=== PATIENT | male | born 1980 | race Hispanic/Latino ===

== ENCOUNTER 2018-06-12 02:52 | Inpatient (IN) | payer OTHER ==
[~2018-06-12] VITALS: Ht 172.7 cm; Wt 109.8 kg
[2018-06-12] MEDS ORDERED: ASPIRIN 325 MG TABLET ONE (03:13)
[2018-06-12] MEDS ORDERED: NITROGLYCERIN 1GM/1 INCH PACKET TD ONE ×2 (03:14→04:50)
[2018-06-12 03:18] LABS: BASOPHILS % (AUTO) 1.3 % (0.0-5.0); EOSINOPHILS % (AUTO) 4.2 % (0.0-8.0); HEMATOCRIT 33.4 % (42-54); LYMPHOCYTES % (AUTO) 19.4 % (21.0-51.0); MEAN CORPUSCULAR HEMOGLOBIN 28.1 pg (27.0-33.0); MEAN CORPUSCULAR HGB CONC 33.2 g/dL (32.0-36.0); MEAN CORPUSCULAR VOLUME 84.7 fL (79-99); MONOCYTES % (AUTO) 6.8 % (3.0-13.0); NEUTROPHILS % (AUTO) 68.3 % (40.0-77.0); PLATELET COUNT (AUTO) 380 K/uL (130-400); RED BLOOD CELL COUNT(AUTO) 3.95 MIL/uL (4.50-6.20); RED CELL DISTRIBUTION WIDTH 13.9 % (11.0-15.5)
[2018-06-12 03:23] LABS: CREATININE 7.2 mg/dL (0.5-1.5); POTASSIUM 5.1 mmol/L (3.5-5.1)
[2018-06-12 03:25] LABS: INR 0.91 (0.85-1.15); PROTHROMBIN TIME 9.6 SEC (9.6-11.6)
[2018-06-12] MEDS ORDERED: LABETALOL HCL 5 MG/ML 20ML VIAL IV ONE (03:28)
[2018-06-12 03:35] LABS: ALBUMIN 3.2 g/dL (3.5-5.0); BILIRUBIN,TOTAL 0.3 mg/dL (0.2-1.0); TOTAL PROTEIN, SERUM 7.2 g/dL (6.0-8.3)
[2018-06-12] MEDS ORDERED: HYDRALAZINE HCL 20 MG/ML VIAL ONE (04:50)
[2018-06-12] MEDS ORDERED: FUROSEMIDE 10 MG/ML 2ML VIAL ONE (05:29)
[2018-06-12] MEDS ORDERED: SODIUM CHLORIDE 0.9% 10 ML VIAL IVP PRN (05:45)
[2018-06-12] MEDS ORDERED: CLONIDINE HCL 0.1 MG TABLET PO PRN (05:45)
[2018-06-12 06:31] VITALS: BP 198/91
[2018-06-12] MEDS ORDERED: DEXTROSE 50%-WATER 50 ML DISP.SYRIN IV PRN (06:45)
[2018-06-12] MEDS ORDERED: GLUCAGON 1MG KIT 1 MG ML IM PRN (06:45)
[2018-06-12] MEDS: ALBUTEROL SULFATE 0.083% 2.5 MG/3 ML INH IH SCH ×3 (07:21→19:20)
[2018-06-12] MEDS: INSULIN R PO SS1 SQ SCH ×4 (07:30→21:00)
[2018-06-12 07:59] VITALS: BP 181/99
[2018-06-12] MEDS: FUROSEMIDE 20 MG TABLET PO SCH ×2 (08:30→21:15)
[2018-06-12] MEDS ORDERED: METOPROLOL TARTRATE 25 MG TAB PO SCH (09:00)
[2018-06-12 11:37] VITALS: BP 146/99
[2018-06-12 12:07] LABS: EOSINOPHILS % (AUTO) 3.3 % (0.0-8.0); HEMATOCRIT 29.7 % (42-54); LYMPHOCYTES % (AUTO) 24.5 % (21.0-51.0); MEAN CORPUSCULAR HEMOGLOBIN 27.6 pg (27.0-33.0); MEAN CORPUSCULAR HGB CONC 32.9 g/dL (32.0-36.0); MEAN CORPUSCULAR VOLUME 83.9 fL (79-99); MONOCYTES % (AUTO) 8.2 % (3.0-13.0); PLATELET COUNT (AUTO) 321 K/uL (130-400); RED BLOOD CELL COUNT(AUTO) 3.54 MIL/uL (4.50-6.20); RED CELL DISTRIBUTION WIDTH 13.7 % (11.0-15.5); WHITE BLOOD COUNT (AUTO) 14.9 K/uL (4.8-10.8)
[2018-06-12 12:21] LABS: ALBUMIN 2.7 g/dL (3.5-5.0); BILIRUBIN,TOTAL 0.4 mg/dL (0.2-1.0); CREATININE 7.3 mg/dL (0.5-1.5); POTASSIUM 4.5 mmol/L (3.5-5.1); TOTAL PROTEIN, SERUM 6.7 g/dL (6.0-8.3)
[2018-06-12 12:27] LABS: B-TYPE NATRIURETIC PEPTIDE 294 pg/mL (0-100)
[2018-06-12 12:47] LABS: HEMOGLOBIN A1C 8.1 % (4.0-6.0)
[2018-06-12] MEDS: METOPROLOL TARTRATE 25 MG TAB PO SCH ×2 (14:36→21:15)
[2018-06-12] MEDS: NITROGLYCERIN 1GM/1 INCH PACKET TD SCH ×2 (14:38→21:16)
[2018-06-12 16:08] VITALS: BP 160/93
[2018-06-12 19:49] VITALS: BP 121/79
[2018-06-13 00:10] VITALS: BP 169/94
[2018-06-13 00:48] LABS: APPEARANCE,URINE Clear (CLEAR); BILIRUBIN,URINE Negative (NEGATIVE); COLOR,URINE Yellow (YELLOW); GLUCOSE, URINE (UA) 250 mg/dL (NEGATIVE); KETONES,URINE Negative (NEGATIVE); LEUKOCYTE ESTERASE ,URINE Negative (NEGATIVE); NITRATE,URINE Negative (NEGATIVE); OCCULT BLOOD,URINE Trace (NEGATIVE); PH,URINE 5.5 (5.0-8.0); PROTEIN,URINE 300 (NEGATIVE); UROBILINOGEN,URINE 0.2 mg/dL (0.2-1.0)
[2018-06-13] MEDS: ALBUTEROL SULFATE 0.083% 2.5 MG/3 ML INH IH SCH ×4 (01:00→18:10)
[2018-06-13 01:03] LABS: RBC,URINE None Seen /HPF (0-1); WBC,URINE None Seen /HPF (0-1)
[2018-06-13 01:04] LABS: BACTERIA,URINE None Seen /HPF (None Seen); SQUAMOUS EPITHELIAL CELL,UR Rare /HPF (0-2)
[2018-06-13 03:59] LABS: BASOPHILS % (AUTO) 1.4 % (0.0-5.0); EOSINOPHILS % (AUTO) 2.6 % (0.0-8.0); HEMATOCRIT 27.8 % (42-54); MEAN CORPUSCULAR HGB CONC 33.1 g/dL (32.0-36.0); MEAN CORPUSCULAR VOLUME 84.6 fL (79-99); MONOCYTES % (AUTO) 8.8 % (3.0-13.0); NEUTROPHILS % (AUTO) 63.2 % (40.0-77.0); PLATELET COUNT (AUTO) 321 K/uL (130-400); RED BLOOD CELL COUNT(AUTO) 3.28 MIL/uL (4.50-6.20); RED CELL DISTRIBUTION WIDTH 13.7 % (11.0-15.5); WHITE BLOOD COUNT (AUTO) 12.8 K/uL (4.8-10.8)
[2018-06-13 04:14] LABS: B-TYPE NATRIURETIC PEPTIDE 247 pg/mL (0-100)
[2018-06-13 04:15] LABS: ALBUMIN 2.6 g/dL (3.5-5.0); BILIRUBIN,TOTAL 0.3 mg/dL (0.2-1.0); CREATININE 7.5 mg/dL (0.5-1.5); TOTAL PROTEIN, SERUM 6.5 g/dL (6.0-8.3)
[2018-06-13 04:32] VITALS: BP 147/97
[2018-06-13] MEDS: NITROGLYCERIN 1GM/1 INCH PACKET TD SCH ×3 (05:43→23:04)
[2018-06-13] MEDS: INSULIN R PO SS1 SQ SCH ×4 (06:03→23:01)
[2018-06-13 08:23] VITALS: BP 160/90
[2018-06-13] MEDS: FOLIC ACID/VITAMIN B COMP W-C 1 MG CAPSULE PO SCH (09:00)
[2018-06-13] MEDS: ASPIRIN 81 MG EC TAB PO SCH (09:00)
[2018-06-13] MEDS: FUROSEMIDE 20 MG TABLET PO SCH ×2 (09:00→23:04)
[2018-06-13] MEDS: METOPROLOL TARTRATE 50 MG TAB PO SCH ×2 (09:01→23:04)
[2018-06-13 11:51] VITALS: BP 155/97
[2018-06-13] MEDS: AMLODIPINE BESYLATE 5 MG TAB PO SCH (15:34)
[2018-06-13 16:43] VITALS: BP 144/87
[2018-06-13 19:32] VITALS: BP 145/89
[2018-06-13] MEDS: ATORVASTATIN CALCIUM 10 MG TABLET PO SCH (23:04)
[2018-06-14] MEDS: ALBUTEROL SULFATE 0.083% 2.5 MG/3 ML INH IH SCH ×5 (00:52→23:49)
[2018-06-14 01:52] VITALS: BP 146/94
[2018-06-14 03:43] VITALS: BP 143/93
[2018-06-14 04:03] LABS: HEMATOCRIT 30.1 % (42-54); MEAN CORPUSCULAR HEMOGLOBIN 27.6 pg (27.0-33.0); MEAN CORPUSCULAR HGB CONC 32.4 g/dL (32.0-36.0); MEAN CORPUSCULAR VOLUME 85.1 fL (79-99); PLATELET COUNT (AUTO) 293 K/uL (130-400); RED BLOOD CELL COUNT(AUTO) 3.54 MIL/uL (4.50-6.20); RED CELL DISTRIBUTION WIDTH 13.7 % (11.0-15.5); WHITE BLOOD COUNT (AUTO) 11.9 K/uL (4.8-10.8)
[2018-06-14 04:25] LABS: CREATININE 7.7 mg/dL (0.5-1.5); POTASSIUM 5.1 mmol/L (3.5-5.1)
[2018-06-14] MEDS: INSULIN R PO SS1 SQ SCH ×4 (05:49→21:00)
[2018-06-14] MEDS: NITROGLYCERIN 1GM/1 INCH PACKET TD SCH ×3 (06:50→22:53)
[2018-06-14 07:29] VITALS: BP 147/92
[2018-06-14] MEDS ORDERED: AMLODIPINE BESYLATE 5 MG TAB PO SCH (09:00)
[2018-06-14] MEDS: FOLIC ACID/VITAMIN B COMP W-C 1 MG CAPSULE PO SCH (10:10)
[2018-06-14] MEDS: FUROSEMIDE 20 MG TABLET PO SCH ×2 (10:10→22:46)
[2018-06-14] MEDS: ASPIRIN 81 MG EC TAB PO SCH (10:10)
[2018-06-14] MEDS: METOPROLOL TARTRATE 50 MG TAB PO SCH ×2 (10:10→22:45)
[2018-06-14] MEDS: AMLODIPINE BESYLATE 5 MG TAB PO SCH (10:11)
[2018-06-14] MEDS ORDERED: ATOR10 PO (10:47)
[2018-06-14] MEDS ORDERED: AMLO5TAB4 PO (10:47)
[2018-06-14] MEDS ORDERED: AEC81 PO (10:47)
[2018-06-14] MEDS ORDERED: METO100T14 PO (10:47)
[2018-06-14 12:04] VITALS: BP 150/96
[2018-06-14 16:31] VITALS: BP 144/95
[2018-06-14 19:46] VITALS: BP 118/56
[2018-06-14] MEDS: ATORVASTATIN CALCIUM 10 MG TABLET PO SCH (22:46)
[2018-06-15 00:16] VITALS: BP 147/81
[2018-06-15 03:51] VITALS: BP 142/96
[2018-06-15] MEDS: NITROGLYCERIN 1GM/1 INCH PACKET TD SCH (05:46)
[2018-06-15] MEDS: INSULIN R PO SS1 SQ SCH ×2 (05:46→11:30)
[2018-06-15] MEDS: ALBUTEROL SULFATE 0.083% 2.5 MG/3 ML INH IH SCH ×2 (06:15→11:03)
[2018-06-15 07:11] LABS: HEPATITIS A ANTIBODY IGM Negative (Negative); HEPATITIS B CORE IGM Negative (Negative); HEPATITIS Bs ANTIGEN SCREEN P Negative (Negative)
[2018-06-15 07:15] VITALS: BP 154/92
[2018-06-15] MEDS: METOPROLOL TARTRATE 50 MG TAB PO SCH (10:53)
[2018-06-15] MEDS: AMLODIPINE BESYLATE 5 MG TAB PO SCH (10:53)
[2018-06-15] MEDS: FOLIC ACID/VITAMIN B COMP W-C 1 MG CAPSULE PO SCH (10:53)
[2018-06-15] MEDS: ASPIRIN 81 MG EC TAB PO SCH (10:54)
[2018-06-15] MEDS: FUROSEMIDE 20 MG TABLET PO SCH (10:54)
[2018-06-15 11:29] VITALS: BP 162/92
[2018-06-15] MEDS ORDERED: LABETALOL HCL 200 MG TABLET PO SCH (21:00)
== END 2018-06-15 14:45 | disposition home or self-care (01) | DRG 292 ==
LOC: EDH 02:52 → EDHIP 02:53 → 2AH 06:18
PROVIDERS: ADMIT Hospitalist; ATTEND Hospitalist
DX: I13.2 Hypertensive heart and chronic kidney disease with heart failure and with stage 5 chronic kidney disease, or end stage renal disease (principal); J81.1 Chronic pulmonary edema; I16.1 Hypertensive emergency; N17.9 Acute kidney failure, unspecified; I50.30 Unspecified diastolic (congestive) heart failure; N18.5 Chronic kidney disease, stage 5; I16.0 Hypertensive urgency; D72.829 Elevated white blood cell count, unspecified; E11.21 Type 2 diabetes mellitus with diabetic nephropathy; E11.65 Type 2 diabetes mellitus with hyperglycemia; E66.01 Morbid (severe) obesity due to excess calories; G47.10 Hypersomnia, unspecified; G47.30 Sleep apnea, unspecified; E11.51 Type 2 diabetes mellitus with diabetic peripheral angiopathy without gangrene; E11.22 Type 2 diabetes mellitus with diabetic chronic kidney disease; D63.1 Anemia in chronic kidney disease; Z68.36 Body mass index [BMI] 36.0-36.9, adult; Z91.19 Patient's noncompliance with other medical treatment and regimen
CPT/HCPCS: 36415; 71045; 76770; 80048; 80053; 80061; 80074; 81001; 82550; 82570; 82948; 83036; 83540; 83550; 83874; 83880; 83935; 84156; 84166; 84300; 84484; 84550; 85025; 85027; 85378; 85610; 85730; 86038; 86160; 86215; 86235; 86255; 86325; 86334; 93005; 93306; 93975; 94640; 94664; J0360; J1815; J1940; J3490

== ENCOUNTER 2019-04-05 22:30 | Inpatient (IN) | payer OTHER ==
[~2019-04-05] VITALS: Ht 172.7 cm; Wt 110.5 kg
[~2019-04-05 22:30] MED LIST: AEC81 PO; AMLO5TAB4 PO; ATOR10 PO; METO100T14 PO
[2019-04-05 23:37] LABS: BASOPHILS % (AUTO) 1.3 % (0.0-5.0); EOSINOPHILS % (AUTO) 5.7 % (0.0-8.0); HEMATOCRIT 21.1 % (42-54); LYMPHOCYTES % (AUTO) 13.1 % (21.0-51.0); MEAN CORPUSCULAR HGB CONC 32.1 g/dL (32.0-36.0); MEAN CORPUSCULAR VOLUME 87.1 fL (79-99); MONOCYTES % (AUTO) 10.1 % (3.0-13.0); NEUTROPHILS % (AUTO) 69.8 % (40.0-77.0); NUCLEATED RED BLOOD CELLS 0.1 % (0.0-0.19); PLATELET COUNT (AUTO) 193 K/uL (130-400); RED BLOOD CELL COUNT(AUTO) 2.42 MIL/uL (4.50-6.20); RED CELL DISTRIBUTION WIDTH 14.9 % (11.0-15.5); WHITE BLOOD COUNT (AUTO) 11.9 K/uL (4.8-10.8)
[2019-04-05 23:52] LABS: ALBUMIN 2.9 g/dL (3.5-5.0); BILIRUBIN,TOTAL 0.3 mg/dL (0.2-1.0); TOTAL PROTEIN, SERUM 7.2 g/dL (6.0-8.3)
[2019-04-05 23:58] LABS: INR 1.05 (0.85-1.15); PARTIAL THROMBOPLASTIN TIME 32.2 SEC (26.3-35.5)
[2019-04-05 23:59] LABS: CREATININE 19.8 mg/dL (0.5-1.5); POTASSIUM 6.4 mmol/L (3.5-5.1)
[2019-04-06] VITALS (15 sets, daily range): BP systolic 120–172; BP diastolic 58–96
[2019-04-06] MEDS ORDERED: SODIUM POLYSTYRENE SULFONATE 15 GM/60 ML ML ONE (00:30)
[2019-04-06] MEDS ORDERED: FUROSEMIDE 10 MG/ML 4ML VIAL ONE (00:30)
[2019-04-06] MEDS ORDERED: DEXTROSE 50%-WATER 50 ML DISP.SYRIN IV ONE (00:31)
[2019-04-06] MEDS ORDERED: INSULIN HUMULIN R 100 UNIT/ML 3ML ONE (00:31)
[2019-04-06] MEDS ORDERED: SODIUM BICARB 50MEQ 50ML VIAL ONE ×2 (00:32→12:08)
[2019-04-06] MEDS ORDERED: CALCIUM GLUCONATE 1 GM/10 ML VIAL IV ONE (00:33)
[2019-04-06 02:27] LABS: ALBUMIN 2.8 g/dL (3.5-5.0); BILIRUBIN,TOTAL 0.4 mg/dL (0.2-1.0); POTASSIUM 5.8 mmol/L (3.5-5.1)
[2019-04-06 02:41] LABS: CREATININE 19.8 mg/dL (0.5-1.5)
[2019-04-06] MEDS ORDERED: GLUCAGON 1MG KIT 1 MG ML IM PRN (04:45)
[2019-04-06] MEDS ORDERED: DEXTROSE 50%-WATER 50 ML DISP.SYRIN IV PRN (04:45)
[2019-04-06] MEDS ORDERED: AMLO10TA7 PO (06:33)
--- NOTE | 2019-04-06 07:20 | NUR ---
PT UPDATE PT RECEIVED WITH H&H OF 6.8/21.1, BUN AND CREATININE OF 155 AND 19.8 WITH A GFR OF 3. MD OLMEDO.
--- NOTE | 2019-04-06 07:29 | NUR ---
PT UPDATE DR FAUZIA MARIANO CALLED BACK AND MADE AWARE OF PT LAB RESULTS, TO MAKE ROUNDS AND TALK TO PT
[2019-04-06] MEDS: INSULIN HUMULIN R 100 UNIT/ML 3ML SQ SCH ×4 (07:30→21:00)
[2019-04-06] MEDS ORDERED: EPOETIN ALFA 10,000 UNIT/ML VIAL SQ SCH (09:30)
[2019-04-06] MEDS ORDERED: LIDOCAINE HCL 1% 20 ML VIAL ONE (12:09)
[2019-04-06 13:58] LABS: HEMOGLOBIN A1C 5.1 % (4.0-6.0)
[2019-04-06 14:02] LABS: ALBUMIN 2.9 g/dL (3.5-5.0)
[2019-04-06 14:19] LABS: HEMATOCRIT 21.2 % (42-54)
[2019-04-06 14:21] LABS: CREATININE 20.2 mg/dL (0.5-1.5)
--- NOTE | 2019-04-06 15:02 | NUR ---
cm note met with patient and states resides at home alone. is independent with ambulation and adls. but has been weaker lately, states has family or friends that can assist him with transport etc. dc plan is back to home at or. discussed dialysis as per dr Vega recommendation, pt states is in agreement to go [place] [facility] [place], 1st choice, 2nd choice, [facility], 3rd choice, [facility], and or any facility that will accept. choice letter obtained. Addendum: 04/06/19 at 1512 by YUMIKO MORSE CM Amended: Links added.
--- NOTE | 2019-04-06 15:03 | NUR ---
PT S/P PERMCATH INSERTION PT REPEAT HEMOGLOBIN 6.6 S/P PERMCATH PLACEMENT, MD AWARE, PT PENDING 1 UNIT OF PRBC WITH DIALYSIS.
[2019-04-06] MEDS ORDERED: SODIUM CHLORIDE 0.9% 1000ML 1,000 ML IV PRN (18:45)
[2019-04-06] MEDS ORDERED: HEPARIN SODIUM 5000UNIT/ML 1ML VIAL IJ PRN (18:45)
[2019-04-06] MEDS ORDERED: ACETAMINOPHEN 325 MG TAB PO PRN (18:45)
[2019-04-06] MEDS ORDERED: 0.9% SODIUM CHLORIDE 1000 ML IV BAG IV PRN (18:45)
--- NOTE | 2019-04-06 19:40 | NUR ---
[facility] CONSULT DR. AURORA OLMEDO, STATED HE WILL SEE PT TOMORROW, NOTIFIED [place] [facility] [place]
--- NOTE | 2019-04-06 22:50 | NUR ---
MD CONSULT DR. SMITH HERE TO SEE PATIENT (COVERING FOR DR. SIMON) SPOKE WITH PATIENT REGARDING AV GRAFT. ORDERS RECEIVED FOR VEIN MAPPING AND SAID HE WILL RETURN TOMORROW.
[2019-04-07 03:30] VITALS: BP 170/86
[2019-04-07 04:49] LABS: MEAN CORPUSCULAR HEMOGLOBIN 28.8 pg (27.0-33.0); MEAN CORPUSCULAR HGB CONC 33.2 g/dL (32.0-36.0); MEAN CORPUSCULAR VOLUME 86.8 fL (79-99); NUCLEATED RED BLOOD CELLS 0.1 % (0.0-0.19); PLATELET COUNT (AUTO) 147 K/uL (130-400); RED BLOOD CELL COUNT(AUTO) 2.33 MIL/uL (4.50-6.20); RED CELL DISTRIBUTION WIDTH 14.9 % (11.0-15.5); WHITE BLOOD COUNT (AUTO) 9.2 K/uL (4.8-10.8)
[2019-04-07 05:13] LABS: PHOSPHORUS 9.6 mg/dL (2.5-4.9); POTASSIUM 4.6 mmol/L (3.5-5.1)
[2019-04-07 05:17] LABS: HEMATOCRIT 20.2 % (42-54)
[2019-04-07 05:18] LABS: CREATININE 15.9 mg/dL (0.5-1.5)
[2019-04-07 05:19] LABS: % IRON SATURATION 52.1 % (30-44)
[2019-04-07 05:39] LABS: BASOPHILS % (MANUAL) 2 % (0-2); EOSINOPHILS % (MANUAL) 1 % (1-6); LYMPHOCYTES % (MANUAL) 11 % (22-44); MAN.DIFF COMMENT-IMPRESSION MANUAL DIFFERENTIAL; MONOCYTES % (MANUAL) 1 % (2-9); PLATELET MORPHOLOGY COMMENT ADEQUATE; SEGMENTED NEUTROPHILS % 85 % (40-70)
--- NOTE | 2019-04-07 06:24 | NUR ---
NOTE PAGED DR. Simone ATKINSON TO NOTIFY OF CRITICAL H&H RESULTS THIS AM.
[2019-04-07] MEDS: INSULIN HUMULIN R 100 UNIT/ML 3ML SQ SCH ×4 (06:38→21:00)
--- NOTE | 2019-04-07 06:47 | NUR ---
NOTE DR. ATKINSON RETURNED CALL. INFORMED OF H&H RESULT. RECEIVED ORDERS TO TRANSFUSE 1 UNIT OF PRBC'S TODAY WITH HEMODIALYSIS. INFORMED PATIENT OF NEW ORDERS.
[2019-04-07 07:59] VITALS: BP 157/83
[2019-04-07 08:12] LABS: HEPATITIS Bs ANTIGEN SCREEN P Negative (Negative)
[2019-04-07 12:00] VITALS: BP 155/96
[2019-04-07] MEDS: EPOETIN ALFA 10,000 UNIT/ML VIAL SQ SCH ×2 (15:00→19:26)
[2019-04-07 16:00] VITALS: BP 152/90
[2019-04-07 19:39] VITALS: BP 180/85
[2019-04-07 23:34] VITALS: BP 171/98
[2019-04-08 03:47] VITALS: BP 185/101
[2019-04-08 05:05] LABS: HEMATOCRIT 24.7 % (42-54); MEAN CORPUSCULAR HEMOGLOBIN 28.9 pg (27.0-33.0); MEAN CORPUSCULAR HGB CONC 33.9 g/dL (32.0-36.0); MEAN CORPUSCULAR VOLUME 85.2 fL (79-99); PLATELET COUNT (AUTO) 151 K/uL (130-400); RED CELL DISTRIBUTION WIDTH 14.4 % (11.0-15.5); WHITE BLOOD COUNT (AUTO) 10.1 K/uL (4.8-10.8)
[2019-04-08 05:24] LABS: PHOSPHORUS 6.9 mg/dL (2.5-4.9); POTASSIUM 3.6 mmol/L (3.5-5.1)
[2019-04-08 05:31] LABS: CREATININE 11.5 mg/dL (0.5-1.5)
[2019-04-08] MEDS: INSULIN HUMULIN R 100 UNIT/ML 3ML SQ SCH ×4 (05:58→21:00)
[2019-04-08 07:40] VITALS: BP 170/91
[2019-04-08] MEDS ORDERED: ONDANSETRON HCL 4 MG/2 ML VIAL IVP PRN (10:30)
[2019-04-08 11:02] VITALS: BP 180/106
--- NOTE | 2019-04-08 11:03 | NUR ---
ELEVATED BP BLOOD PRESSURE READING REPORTED 180/106, HR 72. PAGED DR. ATKINSON TO REPORT BLOOD PRESSURE NO PRN MEDICATIONS ORDERED. ALSO WILL INFORM DR. ATKINSON PATIENTS BLOOD PRESSURE HOME MEDICATIONS PENDING TO BE RESUMED. Addendum: 04/08/19 at 1121 by SHEILA MAYFIELD RN RN DR. ATKINSON RETURNED MY PAGE, DID NOT GIVE ORDERS. STATED "I WILL BE THERE TO SEE PATIENT SOON."
[2019-04-08] MEDS ORDERED: SERTRALINE HCL 50 MG TABLET PO SCH (12:15)
[2019-04-08] MEDS ORDERED: FOLIC ACID/VITAMIN B COMP W-C 1 MG CAP/TAB PO SCH (12:15)
--- NOTE | 2019-04-08 14:30 | NUR ---
HD REFERRAL IN PROCESS- SENT TO [facility]; CALL BACK JAROD-- STATES IT WILL GO TO THEIR CORPORATE OFFICE FOR FINANCIAL APPROVAL Addendum: 04/08/19 at 1552 by OG SANDHU RN CM Amended: Links added.
[2019-04-08 16:04] VITALS: BP 171/91
[2019-04-08] MEDS ORDERED: AMLODIPINE BESYLATE 5 MG TAB PO ONE (16:15)
[2019-04-08] MEDS ORDERED: METOPROLOL TARTRATE 50 MG TAB ONE (16:15)
--- NOTE | 2019-04-08 17:15 | NUR ---
DR. LUIS OLMEDO MD TO FOLLOW-UP WITH CONSULT AND TO INQUIRE ABOUT POSSIBLE PLANS FOR PROCEDURE. NO ANSWER AT THIS TIME.
[2019-04-08] MEDS: EPOETIN ALFA 10,000 UNIT/ML VIAL SQ SCH (18:39)
[2019-04-08 19:27] VITALS: BP 150/84
[2019-04-08] MEDS: ATORVASTATIN CALCIUM 10 MG TABLET PO SCH (21:01)
[2019-04-08] MEDS: METOPROLOL TARTRATE 50 MG TAB PO SCH (21:01)
[2019-04-08 23:24] VITALS: BP 133/70
[2019-04-09 03:56] VITALS: BP 142/84
[2019-04-09 05:18] LABS: HEMATOCRIT 24.5 % (42-54); MEAN CORPUSCULAR HEMOGLOBIN 28.8 pg (27.0-33.0); MEAN CORPUSCULAR HGB CONC 33.5 g/dL (32.0-36.0); MEAN CORPUSCULAR VOLUME 85.8 fL (79-99); NUCLEATED RED BLOOD CELLS 0.1 % (0.0-0.19); PLATELET COUNT (AUTO) 139 K/uL (130-400); RED BLOOD CELL COUNT(AUTO) 2.85 MIL/uL (4.50-6.20); RED CELL DISTRIBUTION WIDTH 14.5 % (11.0-15.5); WHITE BLOOD COUNT (AUTO) 11.1 K/uL (4.8-10.8)
[2019-04-09 05:27] LABS: EOSINOPHILS % (MANUAL) 5 % (1-6); LYMPHOCYTES % (MANUAL) 10 % (22-44); MONOCYTES % (MANUAL) 19 % (2-9); SEGMENTED NEUTROPHILS % 66 % (40-70)
[2019-04-09 05:28] LABS: MAN.DIFF COMMENT-IMPRESSION MANUAL DIFFERENTIAL; PLATELET MORPHOLOGY COMMENT ADEQUATE
[2019-04-09 05:32] LABS: ALBUMIN 2.7 g/dL (3.5-5.0); BILIRUBIN,TOTAL 0.7 mg/dL (0.2-1.0); PHOSPHORUS 5.3 mg/dL (2.5-4.9); POTASSIUM 3.7 mmol/L (3.5-5.1)
[2019-04-09 05:52] LABS: CREATININE 8.9 mg/dL (0.5-1.5)
[2019-04-09] MEDS: INSULIN HUMULIN R 100 UNIT/ML 3ML SQ SCH ×4 (07:30→20:28)
[2019-04-09 08:00] VITALS: BP 131/79
--- NOTE | 2019-04-09 09:09 | NUR ---
DR. SMITH CALLED DR. SMITH ([phone]) TO FOLLOW-UP IN REGARDS TO PLANS FOR POSSIBLE PROCEDURE. SPOKE TO JUDY NELSON AND SHE TOLD ME THAT DR. SMITH STATES "I WILL BE THERE LATER THIS AFTERNOON TO SEE PATIENT."
[2019-04-09] MEDS: SERTRALINE HCL 50 MG TABLET PO SCH (09:21)
[2019-04-09] MEDS: FOLIC ACID/VITAMIN B COMP W-C 1 MG CAP/TAB PO SCH (09:21)
[2019-04-09] MEDS: AMLODIPINE BESYLATE 5 MG TAB PO SCH (09:22)
[2019-04-09] MEDS: METOPROLOL TARTRATE 50 MG TAB PO SCH ×2 (09:22→20:27)
[2019-04-09] MEDS: ASPIRIN 81 MG EC TAB PO SCH (09:22)
[2019-04-09 12:00] VITALS: BP 117/72
[2019-04-09] MEDS: EPOETIN ALFA 10,000 UNIT/ML VIAL SQ SCH (14:46)
--- NOTE | 2019-04-09 15:17 | NUR ---
REFERRAL TO [facility]- CHANGE OF CLINIC RECD ORDER FROM DR. ATKINSON TO CHANGE CLINCI TO [facility]- [place] [facility] [place] PATIENT DOES NOT HAVE WORKING QUARTERS, THIS IS A DISCREPANCY FROM [facility], CALLED [facility] AND LEFT MESSAGE REFERRAL FAXED TO [facility] CENTRAL INTAKE Addendum: 04/09/19 at 1520 by OG SANDHU RN CM Amended: Links added.
[2019-04-09 16:00] VITALS: BP 129/76
[2019-04-09 19:14] VITALS: BP 129/78
[2019-04-09] MEDS: ATORVASTATIN CALCIUM 10 MG TABLET PO SCH (20:27)
--- NOTE | 2019-04-09 23:20 | NUR ---
MD SHADE FARIAS VISITED WITH PATIENT. POC DISCUSSED. NO NEW ORDERS FOR FISTULA OR GRAFT PATIENT WILL BE HAVING DIALYSIS TOMORROW. PER NO ONE INFORMED HIM TODAY ABOUT PATIENT COMPLETING HIS 3 ROUNDS OF DIALYSIS. POSSIBLE PLANNING FOR SATURDAY. PATIENT AWARE. NO QUESTIONS OR CONCERNS VOICED AT THIS TIME. WILL CONTINUE TO BE OBSERVED. Addendum: 04/09/19 at 8123 by MAI PEREZ RN RN Amended: Links added.
[2019-04-09 23:48] VITALS: BP 143/81
[2019-04-10 03:36] VITALS: BP 139/85
[2019-04-10 04:14] LABS: HEMATOCRIT 25.9 % (42-54); MEAN CORPUSCULAR HEMOGLOBIN 28.6 pg (27.0-33.0); MEAN CORPUSCULAR HGB CONC 33.3 g/dL (32.0-36.0); PLATELET COUNT (AUTO) 160 K/uL (130-400); RED BLOOD CELL COUNT(AUTO) 3.01 MIL/uL (4.50-6.20); WHITE BLOOD COUNT (AUTO) 11.2 K/uL (4.8-10.8)
[2019-04-10 04:25] LABS: PHOSPHORUS 5.1 mg/dL (2.5-4.9); POTASSIUM 3.8 mmol/L (3.5-5.1)
[2019-04-10 04:28] LABS: BASOPHILS % (MANUAL) 1 % (0-2); EOSINOPHILS % (MANUAL) 5 % (1-6); LYMPHOCYTES % (MANUAL) 13 % (22-44); MAN.DIFF COMMENT-IMPRESSION MANUAL DIFFERENTIAL; MONOCYTES % (MANUAL) 4 % (2-9); SEGMENTED NEUTROPHILS % 77 % (40-70)
[2019-04-10 04:29] LABS: CREATININE 9.8 mg/dL (0.5-1.5); PLATELET MORPHOLOGY COMMENT ADEQUATE
[2019-04-10 04:45] LABS: BILIRUBIN,URINE Negative (NEGATIVE); COLOR,URINE Yellow (YELLOW); GLUCOSE, URINE (UA) TRACE mg/dL (NEGATIVE); KETONES,URINE Negative (NEGATIVE); LEUKOCYTE ESTERASE ,URINE Moderate (NEGATIVE); NITRATE,URINE Negative (NEGATIVE); OCCULT BLOOD,URINE Trace (NEGATIVE); PROTEIN,URINE 300 mg/dL (NEGATIVE)
[2019-04-10 04:51] LABS: APPEARANCE,URINE SLIGHTLY CLOUDY (CLEAR)
[2019-04-10 05:09] LABS: BACTERIA,URINE Few /HPF (None Seen); RBC,URINE 0-1 /HPF (0-1); SQUAMOUS EPITHELIAL CELL,UR 0-2 /HPF (0-2)
[2019-04-10 07:30] VITALS: BP 149/85
[2019-04-10] MEDS: INSULIN HUMULIN R 100 UNIT/ML 3ML SQ SCH ×4 (07:30→20:53)
[2019-04-10] MEDS: ASPIRIN 81 MG EC TAB PO SCH (09:21)
[2019-04-10] MEDS: AMLODIPINE BESYLATE 5 MG TAB PO SCH (09:22)
[2019-04-10] MEDS: FOLIC ACID/VITAMIN B COMP W-C 1 MG CAP/TAB PO SCH (09:22)
[2019-04-10] MEDS: METOPROLOL TARTRATE 50 MG TAB PO SCH ×2 (09:22→20:53)
[2019-04-10] MEDS: SERTRALINE HCL 50 MG TABLET PO SCH (09:22)
--- NOTE | 2019-04-10 10:30 | NUR ---
CALL JAROD SU TENTATIVE CHAIR TIME MWF 3RD SHIFT AT [facility] AT [facility] [employer] NOTE CLEARED YET . SPOKE AGAIN TO FATOU AT [facility], STATES YES PT HAS WORKING QUARTERS FOR MEDICARE. Addendum: 04/10/19 at 1305 by OG SANDHU RN Amended: Links added.
[2019-04-10 11:00] VITALS: BP 132/78
[2019-04-10] MEDS ORDERED: 0.9% SODIUM CHLORIDE 1000 ML IV BAG IV PRN (12:00)
[2019-04-10] MEDS ORDERED: HEPARIN SODIUM 5000UNIT/ML 1ML VIAL IJ PRN ×2 (12:00)
[2019-04-10] MEDS ORDERED: SODIUM CHLORIDE 0.9% 1000ML 1,000 ML IV PRN (12:00)
[2019-04-10] MEDS ORDERED: ACETAMINOPHEN 325 MG TAB PO PRN (12:00)
[2019-04-10] MEDS ORDERED: LIDOCAINE HCL-MPF 1% 2ML VIAL IJ PRN (12:00)
[2019-04-10] MEDS ORDERED: NITROGLYCERIN 0.4 MG SL TAB SL PRN (12:00)
[2019-04-10 16:00] VITALS: BP 134/75
[2019-04-10] MEDS: EPOETIN ALFA 10,000 UNIT/ML VIAL SQ SCH (16:36)
[2019-04-10 19:30] VITALS: BP 141/86
[2019-04-10] MEDS: ATORVASTATIN CALCIUM 10 MG TABLET PO SCH (20:52)
[2019-04-10 22:51] VITALS: BP 125/80
[2019-04-11] VITALS (25 sets, daily range): BP systolic 110–151; BP diastolic 64–84
[2019-04-11 04:46] LABS: HEMATOCRIT 25.1 % (42-54); MEAN CORPUSCULAR HEMOGLOBIN 28.7 pg (27.0-33.0); MEAN CORPUSCULAR VOLUME 87.1 fL (79-99); NUCLEATED RED BLOOD CELLS 0.2 % (0.0-0.19); PLATELET COUNT (AUTO) 141 K/uL (130-400); RED BLOOD CELL COUNT(AUTO) 2.88 MIL/uL (4.50-6.20); RED CELL DISTRIBUTION WIDTH 14.4 % (11.0-15.5); WHITE BLOOD COUNT (AUTO) 10.8 K/uL (4.8-10.8)
[2019-04-11 04:57] LABS: CREATININE 7.6 mg/dL (0.5-1.5); POTASSIUM 3.9 mmol/L (3.5-5.1)
[2019-04-11 05:02] LABS: INR 1.09 (0.85-1.15); PARTIAL THROMBOPLASTIN TIME 32.5 SEC (26.3-35.5); PROTHROMBIN TIME 11.4 SEC (9.6-11.6)
[2019-04-11] MEDS: INSULIN HUMULIN R 100 UNIT/ML 3ML SQ SCH ×4 (07:30→21:00)
[2019-04-11] MEDS ORDERED: LIDOCAINE HCL MPF 1% 5ML VIAL ONE (08:07)
[2019-04-11] MEDS ORDERED: SUCCINYLCHOLINE 200MG/10ML SYR ONE (08:07)
[2019-04-11] MEDS ORDERED: PROPOFOL 10 MG/ML 20ML VIAL IV ONE (08:08)
[2019-04-11] MEDS ORDERED: FENTANYL CITRATE PF 50 MCG/1 ML 2ML VIAL ONE (08:08)
[2019-04-11] MEDS ORDERED: BACITRACIN 50,000 UNIT VIAL ONE (08:25)
[2019-04-11] MEDS ORDERED: CEFAZOLIN SODIUM 1 GM VIAL ONE (08:50)
[2019-04-11] MEDS ORDERED: EPHEDRINE SULFATE 50 MG/ML AMPULE ONE (09:16)
[2019-04-11] MEDS ORDERED: LIDOCAINE HCL 1% 20 ML VIAL ONE (09:35)
[2019-04-11] MEDS ORDERED: BUPIVACAINE/PF 0.5% 30ML VIAL ONE (09:35)
[2019-04-11] MEDS ORDERED: HEPARIN SODIUM 1000UNIT/ML 10ML VIAL ONE (09:53)
[2019-04-11] MEDS ORDERED: PROTAMINE SULFATE 10 MG/ML 25ML VIAL IV ONE (10:26)
[2019-04-11] MEDS ORDERED: PROTAMINE SULFATE 10 MG/ML 5 ML VIAL ONE (10:26)
--- NOTE | 2019-04-11 11:00 | NUR ---
Nutrition Intervention: Nutrition screen based on LOS x 6 days. Pt. admitted with Dx of Renal Failure. Pt. not in room during RD visit- Out for procedure. Pt. NPO for HD access procedure. Labs reviewed(Alb 2.7, BUN 43, Creat 7.6, GFR 8). LBM: 04/09/19. SR-20, elastic. BMI: 38.8, Obesity Grade 2. Recommendations: 1) When diet resumed, rec. 75gm CCD Renal Dialysis diet with 30ml ProMod BID with meals. 2) Continue to monitor pt's nutritional status. 3) Consult RD as nutrition concerns arise. Addendum: 04/11/19 at [address] Amended: Links added.
[2019-04-11] MEDS: ASPIRIN 81 MG EC TAB PO SCH (12:00)
[2019-04-11] MEDS ORDERED: TRAMADOL HCL 50 MG TABLET PO PRN (12:30)
[2019-04-11] MEDS: SERTRALINE HCL 50 MG TABLET PO SCH (13:15)
[2019-04-11] MEDS: METOPROLOL TARTRATE 50 MG TAB PO SCH ×2 (13:15→19:50)
[2019-04-11] MEDS: AMLODIPINE BESYLATE 5 MG TAB PO SCH (13:15)
[2019-04-11] MEDS: FOLIC ACID/VITAMIN B COMP W-C 1 MG CAP/TAB PO SCH (13:15)
[2019-04-11] MEDS: CEFAZOLIN SODIUM 1 GM VIAL IVP SCH ×2 (13:16→21:55)
[2019-04-11] MEDS: EPOETIN ALFA 10,000 UNIT/ML VIAL SQ SCH (13:17)
[2019-04-11] MEDS: TRAMADOL HCL 50 MG TABLET PO PRN (19:50)
[2019-04-11] MEDS: ATORVASTATIN CALCIUM 10 MG TABLET PO SCH (19:50)
[2019-04-12 04:13] VITALS: BP 134/78
[2019-04-12 04:17] LABS: HEMATOCRIT 26.3 % (42-54); MEAN CORPUSCULAR VOLUME 87.9 fL (79-99); PLATELET COUNT (AUTO) 160 K/uL (130-400); RED BLOOD CELL COUNT(AUTO) 2.99 MIL/uL (4.50-6.20); RED CELL DISTRIBUTION WIDTH 15.1 % (11.0-15.5); WHITE BLOOD COUNT (AUTO) 10.9 K/uL (4.8-10.8)
[2019-04-12 04:40] LABS: PHOSPHORUS 6.4 mg/dL (2.5-4.9); POTASSIUM 3.6 mmol/L (3.5-5.1)
[2019-04-12 04:45] LABS: CREATININE 8.6 mg/dL (0.5-1.5)
[2019-04-12] MEDS: INSULIN HUMULIN R 100 UNIT/ML 3ML SQ SCH ×4 (06:04→21:00)
[2019-04-12] MEDS: EPOETIN ALFA 10,000 UNIT/ML VIAL SQ SCH (07:25)
[2019-04-12] MEDS: CEFAZOLIN SODIUM 1 GM VIAL IVP SCH ×2 (07:49→14:44)
[2019-04-12 08:00] VITALS: BP 127/58
[2019-04-12] MEDS: AMLODIPINE BESYLATE 5 MG TAB PO SCH (08:59)
[2019-04-12] MEDS: METOPROLOL TARTRATE 50 MG TAB PO SCH ×2 (08:59→21:20)
[2019-04-12] MEDS: SERTRALINE HCL 50 MG TABLET PO SCH (08:59)
[2019-04-12] MEDS: FOLIC ACID/VITAMIN B COMP W-C 1 MG CAP/TAB PO SCH (08:59)
[2019-04-12] MEDS: ASPIRIN 81 MG EC TAB PO SCH (09:00)
[2019-04-12] MEDS ORDERED: ASPIRIN 81MG TAB.CHEW ONE (09:01)
[2019-04-12 12:00] VITALS: BP 123/60
[2019-04-12] MEDS: TRAMADOL HCL 50 MG TABLET PO PRN (12:08)
[2019-04-12 16:00] VITALS: BP 127/72
[2019-04-12 19:33] VITALS: BP 138/75
[2019-04-12] MEDS: ATORVASTATIN CALCIUM 10 MG TABLET PO SCH (21:20)
[2019-04-13] VITALS (7 sets, daily range): BP systolic 116–145; BP diastolic 61–79
[2019-04-13] MEDS: INSULIN HUMULIN R 100 UNIT/ML 3ML SQ SCH ×4 (05:23→20:36)
[2019-04-13] MEDS: AMLODIPINE BESYLATE 5 MG TAB PO SCH (09:00)
[2019-04-13] MEDS: METOPROLOL TARTRATE 50 MG TAB PO SCH ×2 (09:00→20:36)
[2019-04-13] MEDS: FOLIC ACID/VITAMIN B COMP W-C 1 MG CAP/TAB PO SCH (09:14)
[2019-04-13] MEDS: SERTRALINE HCL 50 MG TABLET PO SCH (09:15)
[2019-04-13] MEDS ORDERED: ASPIRIN 81MG TAB.CHEW ONE (09:21)
--- NOTE | 2019-04-13 10:00 | NUR ---
MED NONADMIN DID NOT ADMINISTER SCHEDULED BLOOD PRESSURE MEDICATIONS (METOPROLOL AND NORVASC) BECAUSE PATIENT STARTING HEMODIALYSIS TREATMENT.
[2019-04-13] MEDS ORDERED: ASPIRIN 81 MG EC TAB ONE (16:16)
[2019-04-13] MEDS: ASPIRIN 81 MG EC TAB PO SCH (16:20)
[2019-04-13] MEDS: EPOETIN ALFA 10,000 UNIT/ML VIAL SQ SCH (16:50)
[2019-04-13] MEDS: ATORVASTATIN CALCIUM 10 MG TABLET PO SCH (20:36)
[2019-04-14 03:49] VITALS: BP 155/88
[2019-04-14 04:15] LABS: BASOPHILS % (AUTO) 0.8 % (0.0-5.0); EOSINOPHILS % (AUTO) 11.2 % (0.0-8.0); HEMATOCRIT 26.2 % (42-54); LYMPHOCYTES % (AUTO) 16.7 % (21.0-51.0); MEAN CORPUSCULAR HEMOGLOBIN 28.5 pg (27.0-33.0); MEAN CORPUSCULAR HGB CONC 32.5 g/dL (32.0-36.0); MEAN CORPUSCULAR VOLUME 87.7 fL (79-99); MONOCYTES % (AUTO) 14.1 % (3.0-13.0); NEUTROPHILS % (AUTO) 57.2 % (40.0-77.0); PLATELET COUNT (AUTO) 169 K/uL (130-400); RED BLOOD CELL COUNT(AUTO) 2.98 MIL/uL (4.50-6.20); RED CELL DISTRIBUTION WIDTH 15.2 % (11.0-15.5); WHITE BLOOD COUNT (AUTO) 10.6 K/uL (4.8-10.8)
[2019-04-14 04:27] LABS: ALBUMIN 2.6 g/dL (3.5-5.0); BILIRUBIN,TOTAL 0.4 mg/dL (0.2-1.0); CREATININE 7.6 mg/dL (0.5-1.5)
[2019-04-14] MEDS: INSULIN HUMULIN R 100 UNIT/ML 3ML SQ SCH ×4 (07:13→19:53)
[2019-04-14 07:48] VITALS: BP 155/88
[2019-04-14] MEDS: FOLIC ACID/VITAMIN B COMP W-C 1 MG CAP/TAB PO SCH (08:46)
[2019-04-14] MEDS: SERTRALINE HCL 50 MG TABLET PO SCH (08:46)
[2019-04-14] MEDS: AMLODIPINE BESYLATE 5 MG TAB PO SCH (08:47)
[2019-04-14] MEDS: METOPROLOL TARTRATE 50 MG TAB PO SCH ×2 (08:47→19:53)
[2019-04-14] MEDS: ASPIRIN 81 MG EC TAB PO SCH (09:19)
[2019-04-14 11:15] VITALS: BP 148/79
[2019-04-14] MEDS: EPOETIN ALFA 10,000 UNIT/ML VIAL SQ SCH (15:00)
--- NOTE | 2019-04-14 15:59 | NUR ---
[facility] REDDING- SENT INSURANCE ELIGIBILITY QUESTIONARE AT 1330 CALL TO KOBE DONAHUE ANSWERED, READ NOTES FROM ACCOUNT THAT PT PRBABLY ELIGIBLE FOR MEDICARE- CONFIRMING CHAIR TIME, WILL CALL BACK Addendum: 04/14/19 at 1603 by OG SANDHU RN CM Amended: Links added.
[2019-04-14 16:15] VITALS: BP 131/75
[2019-04-14 19:30] VITALS: BP 138/71
[2019-04-14] MEDS: ATORVASTATIN CALCIUM 10 MG TABLET PO SCH (19:53)
--- NOTE | 2019-04-14 19:55 | NUR ---
MEDS SHIFT ASSESSMENT DONE, PLEASE REFER TO CHART. DUE MEDS ADMINISTERED, TOLERATED WELL. KEPT RESTED AND COMFORTABLE. CALL LIGHT WITHIN REACH. WILL MONITOR PT. Addendum: 04/14/19 at 2112 by HAMMAD LUCERO RN RN Amended: Links added.
--- NOTE | 2019-04-14 22:35 | NUR ---
ROUNDS PT RESTING WELL. NO CONCERNS VERBALIZED. KEPT RESTED AND COMFORTABLE. ENCOURAGED TO SLEEP. WILL MONITOR PT. CALL LIGHT WITHIN REACH.
[2019-04-14 23:23] VITALS: BP 126/81
--- NOTE | 2019-04-15 02:00 | NUR ---
ROUNDS PT RESTING WELL, FAIRLY ASLEEP. NO DISTRESS NOTED. KEPT UNDISTURBED FOR NOW. CALL LIGHT WITHIN REACH. WILL MONITOR PT.
[2019-04-15 03:30] VITALS: BP 135/72
--- NOTE | 2019-04-15 05:30 | NUR ---
ROUNDS PT STILL FAIRLY ASLEEP. NO DISTRESS NOTED. KEPT RESTED AND COMFORTABLE. FOR MORE CARE.
[2019-04-15] MEDS: INSULIN HUMULIN R 100 UNIT/ML 3ML SQ SCH ×3 (05:51→21:00)
[2019-04-15 08:00] VITALS: BP 148/77
[2019-04-15] MEDS: METOPROLOL TARTRATE 50 MG TAB PO SCH ×2 (09:00→21:17)
[2019-04-15] MEDS: AMLODIPINE BESYLATE 5 MG TAB PO SCH (09:00)
[2019-04-15] MEDS: ASPIRIN 81 MG EC TAB PO SCH (09:56)
[2019-04-15] MEDS: SERTRALINE HCL 50 MG TABLET PO SCH (09:56)
[2019-04-15] MEDS: FOLIC ACID/VITAMIN B COMP W-C 1 MG CAP/TAB PO SCH (09:56)
[2019-04-15 12:01] VITALS: BP 137/86
--- NOTE | 2019-04-15 13:00 | NUR ---
DR. ATKINSON STATED SINCE WAS STILL PENDING CHAIR, HE WOULD NOT GO TODAY , UNTIL TOMORROW
--- NOTE | 2019-04-15 15:28 | NUR ---
PT ACCEPTED!!! CALLT Melchor ORTEGAISONS, [place] [facility] [place] PT ACCEPTED, FIRST CHAIR TIME SATURDAY 145 PM, CALL TO [facility] LEFT MESSAGE FOR GABRIELA TO INFORM HER THIS CM WOUDL BE UP SHORTLY TO DISCUSS W PT, PLS CALL MDS FOR DC ORDERS Addendum: 04/15/19 at 1530 by OG SANDHU RN CM Amended: Links added.
[2019-04-15 16:00] VITALS: BP 158/83
[2019-04-15 20:00] VITALS: BP 164/88
[2019-04-15] MEDS: ATORVASTATIN CALCIUM 10 MG TABLET PO SCH (21:17)
--- NOTE | 2019-04-15 21:20 | NUR ---
MEDS PT SEEN SITTING ON CHAIR. DENIES ANY CONCERNS AT THIS TIME. SHIFT ASSESSMENT DONE, PLEASE REFER TO CHART. DUE MEDS ADMINISTERED, TOLERATED WELL. KEPT RESTED. CALL LIGHT WITHIN REACH. WILL MONITOR PT. Addendum: 04/16/19 at 0044 by HAMMAD LUCERO RN RN Amended: Links added.
[2019-04-15] MEDS: EPOETIN ALFA 10,000 UNIT/ML VIAL SQ SCH (21:55)
[2019-04-15 23:45] VITALS: BP 152/87
--- NOTE | 2019-04-16 02:00 | NUR ---
ROUNDS PT RESTING WELL, FAIRLY ASLEEP. NO DISTRESS NOTED. KEPT UNDISTURBED FOR NOW. CALL LIGHT WITHIN REACH. WILL MONITOR PT.
[2019-04-16 04:26] VITALS: BP 145/93
[2019-04-16] MEDS: INSULIN HUMULIN R 100 UNIT/ML 3ML SQ SCH ×2 (05:56→11:30)
--- NOTE | 2019-04-16 06:00 | NUR ---
ROUNDS PT RESTING WELL, NO DISTRESS NOTED. NO CONCERNS VERBALIZED. FOR MORE CARE.
[2019-04-16 08:00] VITALS: BP 150/83
[2019-04-16] MEDS: FOLIC ACID/VITAMIN B COMP W-C 1 MG CAP/TAB PO SCH (08:26)
[2019-04-16] MEDS: METOPROLOL TARTRATE 50 MG TAB PO SCH (08:26)
[2019-04-16] MEDS: ASPIRIN 81 MG EC TAB PO SCH (08:26)
[2019-04-16] MEDS: SERTRALINE HCL 50 MG TABLET PO SCH (08:26)
[2019-04-16] MEDS: AMLODIPINE BESYLATE 5 MG TAB PO SCH (08:26)
[2019-04-16 11:46] VITALS: BP 130/73
[2019-04-16] MEDS ORDERED: SERT50TA PO (13:28)
[2019-04-16] MEDS ORDERED: Folic Acid/Vitamin B Comp W-C PO (13:28)
--- NOTE | 2019-04-16 14:00 | NUR ---
DR. ATKINSON ASKED WHAT CARE TO GIVE TO THE AV FISTULA IF I COULD CHANGE THE GAUZE OR CLEAN THE SITE , HE STATED NO TO TOUCH IT, AT ALL THAT , THAT WOULD BE TAKEN CARE OF AT THE 'S SURGEONS' OFFICE
--- NOTE | 2019-04-16 14:00 | NUR ---
CALLED SISTER TO [phone] PER PT REQUEST PT DOES NOT HAVE A RIDE WAITING ON SISTER FOR D/C INSTRUCTIONS
== END 2019-04-16 16:30 | disposition home or self-care (01) | DRG 673 ==
LOC: EDH 22:30 → EDHIP 22:31 → OBSVTOIN 22:31 → 4CH 04-06 03:32 → 4BH 04-07 20:36
PROVIDERS: ADMIT Internal Medicine Nephrology; ATTEND Internal Medicine Nephrology
PROC: 5A1D70Z Performance of Urinary Filtration, Intermittent, Less than 6 Hours Per Day (ICD-10-PCS; 2019-04-06)
PROC: 30233N1 Transfusion of Nonautologous Red Blood Cells into Peripheral Vein, Percutaneous Approach (ICD-10-PCS; 2019-04-06)
PROC: 0JH63XZ Insertion of Tunneled Vascular Access Device into Chest Subcutaneous Tissue and Fascia, Percutaneous Approach (ICD-10-PCS; 2019-04-06)
PROC: 02HV33Z Insertion of Infusion Device into Superior Vena Cava, Percutaneous Approach (ICD-10-PCS; 2019-04-06)
PROC: B548ZZA Ultrasonography of Superior Vena Cava, Guidance (ICD-10-PCS; 2019-04-06)
PROC: B5181ZA Fluoroscopy of Superior Vena Cava using Low Osmolar Contrast, Guidance (ICD-10-PCS; 2019-04-06)
PROC: 5A1D70Z Performance of Urinary Filtration, Intermittent, Less than 6 Hours Per Day (ICD-10-PCS; 2019-04-07)
PROC: 5A1D70Z Performance of Urinary Filtration, Intermittent, Less than 6 Hours Per Day (ICD-10-PCS; 2019-04-08)
PROC: 5A1D70Z Performance of Urinary Filtration, Intermittent, Less than 6 Hours Per Day (ICD-10-PCS; 2019-04-10)
PROC: 031C0ZF Bypass Left Radial Artery to Lower Arm Vein, Open Approach (ICD-10-PCS; principal; 2019-04-11 08:50)
PROC: 5A1D70Z Performance of Urinary Filtration, Intermittent, Less than 6 Hours Per Day (ICD-10-PCS; 2019-04-13)
PROC: 5A1D70Z Performance of Urinary Filtration, Intermittent, Less than 6 Hours Per Day (ICD-10-PCS; 2019-04-15)
DX: I12.0 Hypertensive chronic kidney disease with stage 5 chronic kidney disease or end stage renal disease (principal); N18.6 End stage renal disease; J96.90 Respiratory failure, unspecified, unspecified whether with hypoxia or hypercapnia; E87.5 Hyperkalemia; E11.22 Type 2 diabetes mellitus with diabetic chronic kidney disease; E11.21 Type 2 diabetes mellitus with diabetic nephropathy; D64.9 Anemia, unspecified; Z99.2 Dependence on renal dialysis; Z83.3 Family history of diabetes mellitus; Z82.49 Family history of ischemic heart disease and other diseases of the circulatory system; Z91.15 Patient's noncompliance with renal dialysis
CPT/HCPCS: 36415; 36430; 36558; 71045; 77001; 78580; 80048; 80053; 80061; 81001; 82040; 82565; 82728; 82948; 83036; 83540; 83550; 84100; 84484; 84520; 85014; 85018; 85025; 85027; 85378; 85610; 85730; 86701; 86704; 86706; 86850; 86900; 86901; 86922; 87340; 87390; 87520; 90935; 93005; 93970; 97039; 99291; A6250; A9540; C1750; G0378; J0330; J0610; J0690; J0885; J1644; J1815; J1940; J2405; J2704; J2720; J3010; J3490; J7030; J7070; P9016

== ENCOUNTER 2019-05-26 08:40 | Emergency (ER) | payer OTHER ==
[~2019-05-26 08:40] MED LIST changes: +AMLO10TA7 PO; -AMLO5TAB4 PO; +Folic Acid/Vitamin B Comp W-C PO; +SERT50TA PO
[2019-05-26 09:59] LABS: BASOPHILS % (AUTO) 2.2 % (0.0-5.0); EOSINOPHILS % (AUTO) 5.8 % (0.0-8.0); HEMATOCRIT 30.4 % (42-54); LYMPHOCYTES % (AUTO) 26.4 % (21.0-51.0); MEAN CORPUSCULAR HEMOGLOBIN 28.6 pg (27.0-33.0); MEAN CORPUSCULAR VOLUME 86.7 fL (79-99); MONOCYTES % (AUTO) 8.6 % (3.0-13.0); PLATELET COUNT (AUTO) 129 K/uL (130-400); RED BLOOD CELL COUNT(AUTO) 3.51 MIL/uL (4.50-6.20); RED CELL DISTRIBUTION WIDTH 16.1 % (11.0-15.5); WHITE BLOOD COUNT (AUTO) 9.9 K/uL (4.8-10.8)
[2019-05-26 10:01] LABS: CREATININE 7.8 mg/dL (0.5-1.5); POTASSIUM 4.1 mmol/L (3.5-5.1)
== END 2019-05-26 11:54 | disposition home or self-care (01) ==
LOC: EDH 08:40
DX: R50.9 Fever, unspecified (principal); R05 Cough; E11.9 Type 2 diabetes mellitus without complications; I10 Essential (primary) hypertension
CPT/HCPCS: 36415; 71046; 80048; 85025; 87804

== ENCOUNTER 2019-05-31 08:53 | Inpatient (IN) | payer OTHER ==
[~2019-05-31] VITALS: Ht 175.3 cm; Wt 98.6 kg
[2019-05-31 09:48] LABS: BASOPHILS % (AUTO) 0.2 % (0.0-5.0); HEMATOCRIT 29.6 % (42-54); LYMPHOCYTES % (AUTO) 24.2 % (21.0-51.0); MEAN CORPUSCULAR HEMOGLOBIN 28.2 pg (27.0-33.0); MEAN CORPUSCULAR VOLUME 85.6 fL (79-99); MONOCYTES % (AUTO) 7.8 % (3.0-13.0); NEUTROPHILS % (AUTO) 60.8 % (40.0-77.0); PLATELET COUNT (AUTO) 150 K/uL (130-400); RED BLOOD CELL COUNT(AUTO) 3.45 MIL/uL (4.50-6.20); RED CELL DISTRIBUTION WIDTH 15.8 % (11.0-15.5)
[2019-05-31 10:00] LABS: ALBUMIN 3.4 g/dL (3.5-5.0); BILIRUBIN,DIRECT 0.2 mg/dL (0.0-0.3); BILIRUBIN,TOTAL 0.6 mg/dL (0.2-1.0); POTASSIUM 4.7 mmol/L (3.5-5.1); TOTAL PROTEIN, SERUM 7.9 g/dL (6.0-8.3)
[2019-05-31 10:02] LABS: CREATININE 8.6 mg/dL (0.5-1.5)
[2019-05-31] MEDS ORDERED: ACETAMINOPHEN 325 MG TAB PO PRN ×2 (12:00)
[2019-05-31] MEDS ORDERED: CEFTRIAXONE SODIUM 2 GM VIAL IVP SCH (12:00)
[2019-05-31] MEDS ORDERED: ONDANSETRON HCL 4 MG/2 ML VIAL IV PRN (12:00)
[2019-05-31] MEDS ORDERED: PHARMACY COMMUNICATION MISC SCH (12:00)
[2019-05-31] MEDS ORDERED: GLUCAGON 1MG KIT 1 MG ML IM PRN (12:15)
[2019-05-31] MEDS ORDERED: DEXTROSE 50%-WATER 50 ML DISP.SYRIN IV PRN (12:15)
[2019-05-31] MEDS: CEFTRIAXONE SODIUM 1 GM IVP SCH (12:15)
[2019-05-31] MEDS ORDERED: ENOXAPARIN SODIUM 30 MG/0.3 ML SQ ONE (13:44)
[2019-05-31] MEDS ORDERED: CEFTRIAXONE SODIUM 1 GM ONE (13:45)
[2019-05-31 13:55] LABS: APPEARANCE,URINE Clear (CLEAR); BILIRUBIN,URINE Negative (NEGATIVE); COLOR,URINE Yellow (YELLOW); GLUCOSE, URINE (UA) TRACE mg/dL (NEGATIVE); KETONES,URINE Negative (NEGATIVE); LEUKOCYTE ESTERASE ,URINE Negative (NEGATIVE); NITRATE,URINE Negative (NEGATIVE); OCCULT BLOOD,URINE Nonhemolyzed Trace (NEGATIVE); PH,URINE >=9.0 (5.0-8.0); PROTEIN,URINE 300 mg/dL (NEGATIVE); UROBILINOGEN,URINE 0.2 mg/dL (0.2-1.0)
[2019-05-31] MEDS ORDERED: LEVOFLOXACIN 500 MG/D5W 100 ML 100 ML IV SCH (14:00)
[2019-05-31 14:17] LABS: BACTERIA,URINE Rare /HPF (None Seen); MUCUS,URINE Few LPF (None Seen); SQUAMOUS EPITHELIAL CELL,UR 0-2 /HPF (0-2)
[2019-05-31] MEDS: INSULIN HUMULIN R 100 UNIT/ML 3ML SQ SCH ×2 (16:30→21:00)
[2019-05-31] MEDS ORDERED: VANCOMYCIN PROTOCOL PER PHARMACY IV SCH (17:15)
[2019-05-31] MEDS ORDERED: COMPOUND IV REFRIGERATED 1 EACH IVSOLN MISC PRN (17:30)
[2019-05-31] MEDS ORDERED: VANCOMYCIN 1.5 GM in SODIUM CHLORIDE 0.9% 250 ML IV SCH (18:00)
[2019-05-31] MEDS ORDERED: HYDRALAZINE HCL 20 MG/ML VIAL ONE (18:17)
[2019-05-31 19:00] VITALS: BP 158/96
--- NOTE | 2019-05-31 19:30 | NUR ---
BLE-SKIN DRY AND FLAKY. Addendum: 05/31/19 at 2474 by AB GIRON RN RN Amended: Links added.
[2019-05-31] MEDS ORDERED: SODIUM CHLORIDE 0.9% 250 ML IV ONE (20:00)
[2019-05-31] MEDS: FAMOTIDINE 20MG TAB 20 MG TAB PO SCH (20:05)
[2019-05-31] MEDS: HYDRALAZINE HCL 20 MG/ML VIAL IV PRN (23:26)
[2019-05-31] MEDS ORDERED: SODIUM CHLORIDE 3% FOR INHALATION 4 ML/AMP VIAL.NEB IH ONE (23:49)
[2019-06-01] VITALS: BP 181/97
[2019-06-01] MEDS: CEFTRIAXONE SODIUM 1 GM IVP SCH ×2 (00:41→12:24)
[2019-06-01 04:00] VITALS: BP 155/90
[2019-06-01] MEDS ORDERED: SODIUM CHLORIDE 3% FOR INHALATION 4 ML/AMP VIAL.NEB IH ONE ×3 (04:51→21:48)
[2019-06-01 05:50] LABS: BASOPHILS % (AUTO) 1.8 % (0.0-5.0); EOSINOPHILS % (AUTO) 6.8 % (0.0-8.0); HEMATOCRIT 28.2 % (42-54); LYMPHOCYTES % (AUTO) 19.1 % (21.0-51.0); MEAN CORPUSCULAR HEMOGLOBIN 29.1 pg (27.0-33.0); MEAN CORPUSCULAR HGB CONC 33.4 g/dL (32.0-36.0); MONOCYTES % (AUTO) 8.7 % (3.0-13.0); NEUTROPHILS % (AUTO) 63.6 % (40.0-77.0); PLATELET COUNT (AUTO) 169 K/uL (130-400); RED BLOOD CELL COUNT(AUTO) 3.25 MIL/uL (4.50-6.20); WHITE BLOOD COUNT (AUTO) 10.3 K/uL (4.8-10.8)
[2019-06-01 06:18] LABS: BILIRUBIN,TOTAL 0.6 mg/dL (0.2-1.0); POTASSIUM 4.8 mmol/L (3.5-5.1); TOTAL PROTEIN, SERUM 7.2 g/dL (6.0-8.3)
[2019-06-01] MEDS: INSULIN HUMULIN R 100 UNIT/ML 3ML SQ SCH ×4 (06:31→21:00)
[2019-06-01 07:00] VITALS: BP 170/95
[2019-06-01] MEDS ORDERED: LIDOCAINE HCL-MPF 1% 2ML VIAL ONE (08:28)
[2019-06-01] MEDS ORDERED: NITROGLYCERIN 0.4 MG SL TAB SL PRN (08:45)
[2019-06-01] MEDS ORDERED: SODIUM CHLORIDE 0.9% 1000ML 1,000 ML IV PRN (08:45)
[2019-06-01] MEDS ORDERED: ACETAMINOPHEN 325 MG TAB PO PRN (08:45)
[2019-06-01] MEDS ORDERED: 0.9% SODIUM CHLORIDE 1000 ML IV BAG IV PRN (08:45)
[2019-06-01] MEDS ORDERED: LIDOCAINE HCL-MPF 1% 2ML VIAL IJ PRN (08:45)
[2019-06-01] MEDS ORDERED: ENOXAPARIN SODIUM 30 MG/0.3 ML SQ SCH (09:00)
[2019-06-01] MEDS: FAMOTIDINE 20MG TAB 20 MG TAB PO SCH ×2 (09:54→22:41)
[2019-06-01] MEDS ORDERED: RENAL DOSE IV SCH (11:30)
[2019-06-01] MEDS ORDERED: CEFEPIME HCL 2 GM VIAL IVP SCH (11:30)
[2019-06-01] MEDS ORDERED: VANCOMYCIN PROTOCOL PER PHARMACY IV PRN (11:30)
[2019-06-01] MEDS ORDERED: VANCOMYCIN 1GM+NS 250ML 250 ML IV SCH (11:30)
[2019-06-01 12:00] VITALS: BP 179/92
[2019-06-01] MEDS ORDERED: VANCOMYCIN 1.5 GM in SODIUM CHLORIDE 0.9% 250 ML IV SCH ×2 (12:00→12:15)
[2019-06-01] MEDS ORDERED: COMPOUND IV REFRIGERATED 1 EACH IVSOLN MISC PRN (12:00)
[2019-06-01] MEDS: SODIUM CHLORIDE 0.9% IVP SCH (12:24)
[2019-06-01] MEDS: CEFEPIME HCL IVP SCH (12:24)
[2019-06-01] MEDS: HEPARIN SODIUM 5000UNIT/ML 1ML VIAL SQ SCH ×2 (12:35→22:30)
[2019-06-01 16:00] VITALS: BP 137/91
[2019-06-01 17:12] LABS: INR 1.1 (0.85-1.15); PARTIAL THROMBOPLASTIN TIME 30.3 SEC (26.3-35.5); PROTHROMBIN TIME 11.5 SEC (9.6-11.6)
[2019-06-01 20:00] VITALS: BP 158/96
[2019-06-01] MEDS: AMLODIPINE BESYLATE 5 MG TAB PO SCH (22:41)
[2019-06-02] VITALS (8 sets, daily range): BP systolic 153–177; BP diastolic 54–94
[2019-06-02] MEDS: CEFTRIAXONE SODIUM 1 GM IVP SCH (00:24)
[2019-06-02] MEDS: HYDRALAZINE HCL 20 MG/ML VIAL IV PRN (05:28)
[2019-06-02 05:59] LABS: BASOPHILS % (AUTO) 2.1 % (0.0-5.0); EOSINOPHILS % (AUTO) 6.4 % (0.0-8.0); HEMATOCRIT 30.1 % (42-54); LYMPHOCYTES % (AUTO) 27.5 % (21.0-51.0); MEAN CORPUSCULAR HEMOGLOBIN 28.5 pg (27.0-33.0); MEAN CORPUSCULAR HGB CONC 33.2 g/dL (32.0-36.0); MONOCYTES % (AUTO) 9.4 % (3.0-13.0); NEUTROPHILS % (AUTO) 54.6 % (40.0-77.0); PLATELET COUNT (AUTO) 209 K/uL (130-400); RED CELL DISTRIBUTION WIDTH 15.5 % (11.0-15.5); WHITE BLOOD COUNT (AUTO) 9.5 K/uL (4.8-10.8)
[2019-06-02 06:26] LABS: PHOSPHORUS 6.2 mg/dL (2.5-4.9); POTASSIUM 4.3 mmol/L (3.5-5.1)
[2019-06-02 06:31] LABS: % IRON SATURATION 14.1 % (30-44)
[2019-06-02 06:38] LABS: CREATININE 8.4 mg/dL (0.5-1.5)
[2019-06-02] MEDS: INSULIN HUMULIN R 100 UNIT/ML 3ML SQ SCH ×3 (07:30→21:00)
[2019-06-02] MEDS ORDERED: COMPOUND IV MISC 1 EACH IVSOLN MISC PRN (08:00)
[2019-06-02 08:12] LABS: HEPATITIS A ANTIBODY IGM Negative (Negative); HEPATITIS B CORE IGM Negative (Negative); HEPATITIS Bs ANTIGEN SCREEN P Negative (Negative)
[2019-06-02] MEDS: AMLODIPINE BESYLATE 5 MG TAB PO SCH ×2 (09:07→21:02)
[2019-06-02] MEDS: FAMOTIDINE 20MG TAB 20 MG TAB PO SCH ×2 (09:07→21:02)
[2019-06-02] MEDS: LISINOPRIL 5 MG TABLET PO SCH (09:08)
[2019-06-02] MEDS: IRON SUCROSE COMPLEX 100 MG in SODIUM CHLORIDE 0.9% 50 ML IV SCH (09:08)
[2019-06-02] MEDS: HEPARIN SODIUM 5000UNIT/ML 1ML VIAL SQ SCH ×2 (10:30→23:19)
--- NOTE | 2019-06-02 10:46 | NUR ---
HEPARIN IS ON HOLD FOR PERMACATH REMOVAL.
[2019-06-02] MEDS ORDERED: LIDOCAINE HCL 1% MDV 50ML VIAL ONE (10:56)
--- NOTE | 2019-06-02 11:54 | NUR ---
Permacath removal @ bedside Patient prepped at bedside for right permacath removal. Time out performed prior to start of procedure. Dr Cronin administered 1% Lidocaine to subclavian catheter site. Right permacath removed. Patient tolerated well. Manual pressure held to site x 10 min. No bleeding or hematoma noted. Dressing applied. HOB elevated > 45 degrees. Catheter tip collected for C&S. CXR ordered. Report given to primary nurse Tiffanie RAHMAN. Patient has no complaints.
--- NOTE | 2019-06-02 12:20 | NUR ---
CATHETER REMOVAL WAS DONE AT THE BEDSIDE WITH ER REGISTRAR NURSES AND DR BRYANT. PATIENT TOLERATED THE PROCEDURE WELL. RIGHT CHEST SITE IS SOFT WITHOUT HEMATOMA, DRESSING IS CLEAN DRY AND INTACT. PATIENT DENIES PAIN AT THIS TIME, VITAL SIGNS ARE STABLE. HOB IS 45 DEGREE ELEVATED. WILL CONTINUE TO MONITOR.
--- NOTE | 2019-06-02 14:00 | NUR ---
RIGHT UPPER CHEST PERMA CATH SITE IS CLEAN DRY AND INTACT WITH NO S/S OF BLEEDING. PATIENT IS STABLE.
[2019-06-02] MEDS: CEFEPIME HCL IVP SCH (15:59)
[2019-06-02] MEDS: SODIUM CHLORIDE 0.9% IVP SCH (15:59)
--- NOTE | 2019-06-02 16:12 | NUR ---
RD NOTIFICATION DX: POSSIBLE GRAM POSITIVE PNEUMONIA. HX: ESRD ON HD, DM, HTN, ANEMIA. DIET: NPO, WAS ON RENAL DIALYSIS DIET. PO 100% AND HAS GOOD APPETITE PER PT. LBM: 06/01. NON-PITTING EDEMA, SKIN INTACT. PT NPO DUE TO REMOVAL OF GRAFT PROCEDURE PER PT. DIET WILL RESUME FOR LUNCH. PT EATS 3 MEALS AT HOME AND SNACKS EVERYDAY. PT WAS EDUCATED IN THE PAST REGARDING RENAL DIALYSIS DIET AT [facility] WHERE HE RECEIVES DIALYSIS TREATMENT EVERY WEEK. RD PROVIDED PT WITH HANDOUTS TO TAKE HOME REGARDING HIS DIET WELL A GROCERY LIST FOR DIALYSIS PTS. PT WAS INFORMED ABOUT HIS CURRENT PHOSPHORUS LAB VALUE AND WAS EDUCATED ON RECOMMENDED FOODS THAT ARE LOW IN PHOSPHORUS. RD RECOMMENDS TO CONTINUE CURRENT DIET. ADD 75GMCCD TO DIET ORDER. RD WILL CONTINUE TO MONITOR AND FOLLOW UP NEEDED. THANK YOU. Addendum: 06/02/19 at [address] Amended: Links added.
--- NOTE | 2019-06-02 16:14 | NUR ---
DIET EDUCATION PT WAS EDUCATED IN THE PAST REGARDING RENAL DIALYSIS DIET AT [facility] WHERE HE RECEIVES DIALYSIS TREATMENT OFTEN. [facility] PROVIDED PT WITH HANDOUTS TO TAKE HOME REGARDING HIS DIET WELL AND A GROCERY LIST SPECIFICALLY FOR DIALYSIS PTS. [facility]IS INFORMED PT ABOUT HIS CURRENT PHOSPHORUS LAB VALUE AND WAS EDUCATED ON RECOMMENDED FOODS THAT ARE LOW IN PHOSPHORUS. Addendum: 06/02/19 at [address] Amended: Links added.
--- NOTE | 2019-06-02 17:00 | NUR ---
INITIAL PT KNOWN TO THIS CM LIVES ALONE, INDP OF ADLS, NO DME, DRIVES, RECENT [facility], MWF AT [facility] THIRD SHIFT, HOME SAFE AND ACCESSIBLE, DCP HOME ANTICIPATE DC TOMORROW, PENDING CULTURES Addendum: 06/03/19 at 1844 by OG SANDHU RN Amended: Links added.
[2019-06-02] MEDS ORDERED: ATORVASTATIN CALCIUM 20 MG TABLET PO SCH (21:00)
[2019-06-03 04:00] VITALS: BP 141/83
[2019-06-03 05:34] LABS: HEMATOCRIT 30.3 % (42-54); MEAN CORPUSCULAR HEMOGLOBIN 28.3 pg (27.0-33.0); MEAN CORPUSCULAR HGB CONC 32.8 g/dL (32.0-36.0); MEAN CORPUSCULAR VOLUME 86.2 fL (79-99); PLATELET COUNT (AUTO) 217 K/uL (130-400); RED BLOOD CELL COUNT(AUTO) 3.52 MIL/uL (4.50-6.20); RED CELL DISTRIBUTION WIDTH 15.9 % (11.0-15.5)
[2019-06-03 05:46] LABS: PHOSPHORUS 7.3 mg/dL (2.5-4.9); POTASSIUM 4.7 mmol/L (3.5-5.1)
[2019-06-03] MEDS: INSULIN HUMULIN R 100 UNIT/ML 3ML SQ SCH ×3 (06:20→16:30)
[2019-06-03 08:30] VITALS: BP 145/89
[2019-06-03] MEDS ORDERED: ASPIRIN 81MG TAB.CHEW PO SCH (09:00)
[2019-06-03] MEDS: HEPARIN SODIUM 5000UNIT/ML 1ML VIAL SQ SCH (10:30)
[2019-06-03 11:00] VITALS: BP 166/94
[2019-06-03] MEDS: FAMOTIDINE 20MG TAB 20 MG TAB PO SCH (12:51)
[2019-06-03] MEDS: AMLODIPINE BESYLATE 5 MG TAB PO SCH (12:51)
[2019-06-03] MEDS: LISINOPRIL 5 MG TABLET PO SCH (12:51)
[2019-06-03] MEDS: IRON SUCROSE COMPLEX 100 MG in SODIUM CHLORIDE 0.9% 50 ML IV SCH (12:52)
--- NOTE | 2019-06-03 14:30 | NUR ---
DR ATKINSON ROUNDED ON PATIENT , PATIENT MAY BE DISCHARGE TODAY PER HIS SERVICE AFTER IV VANCOMYCIN GIVEN . PATIENT TO BE D/C WITH ORDERS FOR VANO AFTER EVERY DIALYSIS FOR 2 WEEKS
[2019-06-03] MEDS: SODIUM CHLORIDE 0.9% IVP SCH (15:26)
[2019-06-03] MEDS: CEFEPIME HCL IVP SCH (15:26)
[2019-06-03] MEDS ORDERED: VANCOMYCIN 1GM+NS 250ML 250 ML IV SCH (15:45)
[2019-06-03 16:54] VITALS: BP 175/101
[2019-06-03] MEDS ORDERED: ATOR20TA65 PO (17:19)
[2019-06-03] MEDS ORDERED: LISI-617 PO (17:19)
[2019-06-03 20:00] VITALS: BP 157/88
--- NOTE | 2019-06-03 21:40 | NUR ---
PATIENT DISCHARGED DC INSTRUCTIONS GIVEN TO PATIENT. PRINTED TEACHING WELL MEDICATIONS TO BEGIN TAKING AND TO CONTINUE TAKING HOME MEDICATIONS. FUP WITH PRIMARY PCP IN 3-5 DAYS. PIV REMOVED FROM RIGHT HAND, CATHETER INTACT. PATIENT HAS BELONGINGS WITH HIM AND DESK MANAGER TO TAKE PATIENT DOWN TO ED VIA WHEELCHAIR WHERE HE SAYS FAMILY IS TO PICK HIM UP. PT HAS NO QUESTIONS AT THIS TIME AND VERBALLY ACKNOWLEDGES DC INSTRUCTIONS.
== END 2019-06-03 21:50 | disposition home or self-care (01) | DRG 871 ==
LOC: EDH 08:53 → EDHIP 08:54 → OBSVTOIN 08:54 → 3BH 19:00
PROVIDERS: ADMIT Family Medicine; ATTEND Family Medicine
PROC: 5A1D70Z Performance of Urinary Filtration, Intermittent, Less than 6 Hours Per Day (ICD-10-PCS; principal; 2019-06-01)
PROC: 0JPV3XZ Removal of Tunneled Vascular Access Device from Upper Extremity Subcutaneous Tissue and Fascia, Percutaneous Approach (ICD-10-PCS; 2019-06-02)
PROC: 02PAX3Z Removal of Infusion Device from Heart, External Approach (ICD-10-PCS; 2019-06-02)
PROC: 5A1D70Z Performance of Urinary Filtration, Intermittent, Less than 6 Hours Per Day (ICD-10-PCS; 2019-06-03)
DX: A41.9 Sepsis, unspecified organism (principal); N18.6 End stage renal disease; J18.9 Pneumonia, unspecified organism; I12.0 Hypertensive chronic kidney disease with stage 5 chronic kidney disease or end stage renal disease; T82.7XXA Infection and inflammatory reaction due to other cardiac and vascular devices, implants and grafts, initial encounter; E87.70 Fluid overload, unspecified; D64.9 Anemia, unspecified; E11.22 Type 2 diabetes mellitus with diabetic chronic kidney disease; E66.01 Morbid (severe) obesity due to excess calories; I16.0 Hypertensive urgency; I25.10 Atherosclerotic heart disease of native coronary artery without angina pectoris; Y95 Nosocomial condition; Y84.6 Urinary catheterization as the cause of abnormal reaction of the patient, or of later complication, without mention of misadventure at the time of the procedure; Y92.89 Other specified places as the place of occurrence of the external cause; Z99.2 Dependence on renal dialysis; Z83.3 Family history of diabetes mellitus; Z82.49 Family history of ischemic heart disease and other diseases of the circulatory system
CPT/HCPCS: 36415; 36589; 71045; 71046; 71250; 80048; 80053; 80074; 80076; 81001; 82550; 82948; 83540; 83550; 83605; 84100; 84145; 84484; 85025; 85027; 85610; 85730; 87040; 87070; 87076; 87804; 90935; 93005; 94640; G0378; J0360; J0692; J0696; J1644; J1650; J1756; J1956; J3370; J3490; J7030

== ENCOUNTER 2019-11-15 22:53 | Inpatient (IN) | payer MEDICARE ==
[~2019-11-15] VITALS: Ht 175.3 cm; Wt 97.0 kg
[~2019-11-15 22:53] MED LIST changes: -ATOR10 PO; +ATOR20TA65 PO; -Folic Acid/Vitamin B Comp W-C PO; +LISI-617 PO; -METO100T14 PO; -SERT50TA PO
[2019-11-16 00:32] LABS: ALBUMIN 3.6 g/dL (3.5-5.0); BILIRUBIN,TOTAL 0.8 mg/dL (0.2-1.0); POTASSIUM 5.1 mmol/L (3.5-5.1); TOTAL PROTEIN, SERUM 7.7 g/dL (6.0-8.3)
[2019-11-16 00:36] LABS: CREATININE 12.7 mg/dL (0.5-1.5)
[2019-11-16 00:46] LABS: BASOPHILS % (AUTO) 1.3 % (0.0-5.0); HEMATOCRIT 35.5 % (42-54); LYMPHOCYTES % (AUTO) 28.5 % (21.0-51.0); MEAN CORPUSCULAR HEMOGLOBIN 29.8 pg (27.0-33.0); MEAN CORPUSCULAR HGB CONC 33.2 g/dL (32.0-36.0); MEAN CORPUSCULAR VOLUME 89.6 fL (79-99); MONOCYTES % (AUTO) 7.6 % (3.0-13.0); NEUTROPHILS % (AUTO) 55.3 % (40.0-77.0); PLATELET COUNT (AUTO) 254 K/uL (130-400); RED BLOOD CELL COUNT(AUTO) 3.96 MIL/uL (4.50-6.20); RED CELL DISTRIBUTION WIDTH 12.4 % (11.0-15.5); WHITE BLOOD COUNT (AUTO) 11.5 K/uL (4.8-10.8)
[2019-11-16 00:53] LABS: INR 0.99 (0.85-1.15); PARTIAL THROMBOPLASTIN TIME 25.9 SEC (26.3-35.5); PROTHROMBIN TIME 10.7 SEC (9.6-11.6)
[2019-11-16] MEDS ORDERED: GLUCAGON 1MG KIT 1 MG ML IM PRN (01:15)
[2019-11-16] MEDS ORDERED: DEXTROSE 50%-WATER 50 ML DISP.SYRIN IV PRN (01:15)
[2019-11-16] MEDS: ONDANSETRON HCL 4 MG/2 ML VIAL IVP SCH ×3 (02:00→18:00)
[2019-11-16] MEDS: ACETAMINOPHEN 325 MG TAB PO SCH ×3 (06:00→18:00)
[2019-11-16] MEDS: FAMOTIDINE/PF 20 MG/2 ML VIAL IV SCH ×2 (09:00→22:36)
[2019-11-16] MEDS: FOLIC ACID/VITAMIN B COMP W-C 1 CAP TAB PO SCH (10:15)
[2019-11-16] MEDS: AMLODIPINE BESYLATE 5 MG TAB PO SCH (10:15)
[2019-11-16] MEDS: LISINOPRIL 20 MG TABLET PO SCH (10:15)
[2019-11-16] MEDS ORDERED: AMLODIPINE BESYLATE 5 MG TAB ONE (10:21)
[2019-11-16] MEDS ORDERED: CALCIUM ACETATE 667 MG CAPSULE PO ONE ×2 (10:22→17:30)
[2019-11-16] MEDS ORDERED: LISI-613 PO (11:39)
[2019-11-16] MEDS ORDERED: SUCR500T PO (11:39)
[2019-11-16] MEDS ORDERED: CALC667C10 PO (11:39)
[2019-11-16] MEDS ORDERED: FOLI0.8T22 PO (11:39)
--- NOTE | 2019-11-16 11:47 | NUR ---
INITIAL SW met with patient. He states he lives alone. Emergency contact is his sister, Jacque Mendoza, . No home services. Dialysis: MWF at 5am at [facility]. Patient drives himself to dialysis. He is independent in completing his ADL's. PCP is Dr. Vega. Pharmacy is [facility] located in [place]. DCP is home. Addendum: 11/16/19 at 1150 by AB PIERRE SS Amended: Links added.
[2019-11-16] MEDS: CALCIUM ACETATE 667 MG CAPSULE PO SCH ×3 (12:00→22:45)
[2019-11-16] MEDS ORDERED: ONDANSETRON HCL 4 MG/2 ML VIAL ONE (13:16)
[2019-11-16] MEDS ORDERED: LORAZEPAM 2 MG/ML 1 ML VIAL ONE (14:10)
[2019-11-16] MEDS ORDERED: ASPIRIN 325 MG TABLET ONE (20:03)
[2019-11-16] MEDS: INSULIN R PO SS1 SQ SCH (21:00)
[2019-11-16 21:37] VITALS: BP 135/85
--- NOTE | 2019-11-16 21:45 | NUR ---
ADMIT PT ADMITTED TO ROOM 328, AAOX3. NO COMPLAINTS NOR CONCERNS AT THIS TIME. NO DISTRESS NOTED. ADMISSION CARE DONE. ORIENTED TO ROOM AND UNIT. IN FOR MORE CARE AND MANAGEMENT.
[2019-11-16] MEDS: ATORVASTATIN CALCIUM 20 MG TABLET PO SCH (22:36)
[2019-11-16 23:33] VITALS: BP 156/99
--- NOTE | 2019-11-17 | NUR ---
MED PT CLAIMS NO PAINS NOR DISCOMFORT NOR FEVER AT THIS TIME. NO NEED FOR ANY TYLENOL DOSE.
--- NOTE | 2019-11-17 01:50 | NUR ---
ROUNDS PT ASKS FOR AN EXTRA BLANKET. CALLED HOUSE KEEPING FOR THICK BLANKETS NONE SEEN ON THE FLOOR. ADJUSTED THERMOSTAT IN ROOM TO KEEP IT WARMER. KEPT COMFORTABLE AND RESTED. WILL CONTINUE TO MONITOR.
[2019-11-17] MEDS: ONDANSETRON HCL 4 MG/2 ML VIAL IVP SCH ×3 (02:00→17:21)
--- NOTE | 2019-11-17 02:00 | NUR ---
MED PT HAS NO COMPLAINTS OF NAUSEA. NO NEED FOR MED AT THIS TIME.
--- NOTE | 2019-11-17 02:50 | NUR ---
ROUNDS PATIENT ASLEEP. OBSERVED RISE AND FALL OF CHEST. EVEN, UNLABORED RESPIRATIONS. NO DISTRESS NOTED. BED IN LOWEST POSITION, RAILS UP X2. CALL LIGHT WITHIN REACH. DOOR LEFT OPEN, WILL CONTINUE TO MONITOR.
[2019-11-17 03:30] VITALS: BP 139/82
[2019-11-17] MEDS: ACETAMINOPHEN 325 MG TAB PO SCH ×4 (05:15→17:21)
[2019-11-17 06:08] LABS: APPEARANCE,URINE Clear (CLEAR); BILIRUBIN,URINE Negative (NEGATIVE); COLOR,URINE Yellow (YELLOW); GLUCOSE, URINE (UA) TRACE mg/dL (NEGATIVE); KETONES,URINE Negative (NEGATIVE); LEUKOCYTE ESTERASE ,URINE Negative (NEGATIVE); NITRATE,URINE Negative (NEGATIVE); OCCULT BLOOD,URINE Negative (NEGATIVE); PH,URINE 7.5 (5.0-8.0); PROTEIN,URINE 300 mg/dL (NEGATIVE)
[2019-11-17 06:17] LABS: BACTERIA,URINE Few /HPF (None Seen); RBC,URINE 0-1 /HPF (0-1)
[2019-11-17 06:19] LABS: HEMATOCRIT 33.7 % (42-54); MEAN CORPUSCULAR HGB CONC 33.5 g/dL (32.0-36.0); MEAN CORPUSCULAR VOLUME 89.4 fL (79-99); PLATELET COUNT (AUTO) 236 K/uL (130-400); RED BLOOD CELL COUNT(AUTO) 3.77 MIL/uL (4.50-6.20); RED CELL DISTRIBUTION WIDTH 12.4 % (11.0-15.5); WHITE BLOOD COUNT (AUTO) 9.8 K/uL (4.8-10.8)
[2019-11-17 06:27] LABS: HEMOGLOBIN A1C 5.6 % (4.0-6.0)
[2019-11-17 06:46] LABS: ALBUMIN 3.3 g/dL (3.5-5.0); BILIRUBIN,TOTAL 0.7 mg/dL (0.2-1.0); PHOSPHORUS 8.6 mg/dL (2.5-4.9); POTASSIUM 5.2 mmol/L (3.5-5.1); TOTAL PROTEIN, SERUM 7.4 g/dL (6.0-8.3)
[2019-11-17 06:49] LABS: CREATININE 10.7 mg/dL (0.5-1.5)
[2019-11-17] MEDS: INSULIN R PO SS1 SQ SCH ×4 (07:12→21:00)
[2019-11-17 07:13] LABS: HEPATITIS A ANTIBODY IGM Negative (Negative); HEPATITIS B CORE IGM Negative (Negative); HEPATITIS Bs ANTIGEN SCREEN P Negative (Negative)
[2019-11-17 07:58] VITALS: BP 116/76
[2019-11-17] MEDS: LISINOPRIL 20 MG TABLET PO SCH (08:30)
[2019-11-17] MEDS: ASPIRIN 325MG EC TAB 325 MG TABLET.DR PO SCH (08:30)
[2019-11-17] MEDS: FOLIC ACID/VITAMIN B COMP W-C 1 CAP TAB PO SCH (08:31)
[2019-11-17] MEDS: FAMOTIDINE/PF 20 MG/2 ML VIAL IV SCH ×2 (08:31→21:35)
[2019-11-17] MEDS: CALCIUM ACETATE 667 MG CAPSULE PO SCH ×3 (08:31→17:15)
[2019-11-17] MEDS: AMLODIPINE BESYLATE 5 MG TAB PO SCH (08:31)
--- NOTE | 2019-11-17 09:00 | NUR ---
DYSPHAGIA EVKERRI COMPLETED. -S/S OF ASPIRATION. RECOMMEND REGULAR TEXTURE, THIN LIQUIDS; PILLS WHOLE WITH LIQUIDS. Pt WITH RIGHT HAND WEAKNESS WITH DIFFICULTY SELF-FEEDING WITH DOMINANT HAND SECONDARY TO WEAKNESS. OCCUPATIONAL THERAPY IS RECOMMENDED AT THIS TIME. PLEASE CONSIDER OUTPATIENT REFERRAL. Addendum: 11/17/19 at 1134 by IESHA CARDONA, [facility] Amended: Links added.
[2019-11-17 11:05] VITALS: BP 132/81
[2019-11-17 17:30] VITALS: BP 143/88
[2019-11-17 20:00] VITALS: BP 162/86
[2019-11-17] MEDS: ATORVASTATIN CALCIUM 20 MG TABLET PO SCH (21:34)
--- NOTE | 2019-11-17 21:35 | NUR ---
MEDS SHIFT ASSESSMENT DONE, PLEASE REFER TO CHART. PT STILL CLAIMS OF DOUBLE VISION. PT'S HAND IS WEAK FROM WRIST TO FINGERS. NO PAIN NOR DISCOMFORT VERBALIZED. DUE MEDS ADMINISTERED, TOLERATED WELL. KEPT COMFORTABLE AND RESTED. CALL LIGHT WITHIN REACH. WILL MONITOR PT. Addendum: 11/18/19 at 0206 by HAMMAD LUCERO RN RN Amended: Links added.
[2019-11-17] MEDS ORDERED: ONDANSETRON HCL 4 MG/2 ML VIAL IVP PRN (22:00)
[2019-11-17] MEDS ORDERED: ACETAMINOPHEN 325 MG TAB PO PRN (22:00)
[2019-11-17 23:43] VITALS: BP 163/91
--- NOTE | 2019-11-18 02:10 | NUR ---
PATCH PT IS AWAKE SITTING DOWN IN CHAIR. PT CLAIMS OF INABILITY TO SLEEP HE ALREADY SLEPT DURING THE DAY. STILL HAVING DOUBLE VISION AND GETTING DIZZY WITH IT. EYE PATCH APPLIED ON ONE EYE TO HELP PT FOCUS SIGHT. ENCOURAGED TO REST.
[2019-11-18 03:28] VITALS: BP 173/90
[2019-11-18 04:01] VITALS: BP 150/92
[2019-11-18 05:05] LABS: HEMATOCRIT 31.9 % (42-54); MEAN CORPUSCULAR HEMOGLOBIN 29.8 pg (27.0-33.0); MEAN CORPUSCULAR HGB CONC 33.5 g/dL (32.0-36.0); MEAN CORPUSCULAR VOLUME 88.9 fL (79-99); PLATELET COUNT (AUTO) 223 K/uL (130-400); RED BLOOD CELL COUNT(AUTO) 3.59 MIL/uL (4.50-6.20); RED CELL DISTRIBUTION WIDTH 12.2 % (11.0-15.5); WHITE BLOOD COUNT (AUTO) 11.2 K/uL (4.8-10.8)
[2019-11-18 05:16] LABS: PHOSPHORUS 8.2 mg/dL (2.5-4.9); POTASSIUM 5.1 mmol/L (3.5-5.1)
[2019-11-18 05:20] LABS: CREATININE 12.6 mg/dL (0.5-1.5)
--- NOTE | 2019-11-18 06:00 | NUR ---
ROUNDS PT RESTING WELL, FAIRLY ASLEEP. NO DISTRESS NOTED. KEPT COMFORTABLE. FOR MORE CARE.
[2019-11-18] MEDS: INSULIN R PO SS1 SQ SCH ×4 (06:12→21:00)
[2019-11-18 07:30] VITALS: BP 155/89
[2019-11-18] MEDS: CALCIUM ACETATE 667 MG CAPSULE PO SCH ×3 (08:00→17:00)
[2019-11-18] MEDS: LISINOPRIL 20 MG TABLET PO SCH (11:07)
[2019-11-18] MEDS: ASPIRIN 325MG EC TAB 325 MG TABLET.DR PO SCH (11:07)
[2019-11-18] MEDS: FOLIC ACID/VITAMIN B COMP W-C 1 CAP TAB PO SCH (11:07)
[2019-11-18] MEDS: FAMOTIDINE/PF 20 MG/2 ML VIAL IV SCH ×2 (11:08→21:16)
[2019-11-18] MEDS: AMLODIPINE BESYLATE 5 MG TAB PO SCH (11:08)
[2019-11-18 11:14] VITALS: BP 163/88
--- NOTE | 2019-11-18 11:34 | NUR ---
DR. ATKINSON PAGED RE; PT WANTS ANXIETY MED FOR MRA OF HEAD, STATES HE WILL NOT DO IT UNLESS HE GETS SOMETHING FOR ANXIETY.
[2019-11-18] MEDS ORDERED: LORAZEPAM 2 MG/ML 1 ML VIAL IVP SCH (12:00)
[2019-11-18] MEDS ORDERED: LIDOCAINE HCL-MPF 1% 2ML VIAL IJ PRN (13:45)
[2019-11-18] MEDS ORDERED: SODIUM CHLORIDE 0.9% 1000ML 1,000 ML IV PRN (13:45)
[2019-11-18] MEDS ORDERED: NITROGLYCERIN 0.4 MG SL TAB SL PRN (13:45)
[2019-11-18] MEDS ORDERED: HEPARIN SODIUM 5000UNIT/ML 1ML VIAL IJ PRN (13:45)
[2019-11-18] MEDS ORDERED: 0.9% SODIUM CHLORIDE 1000 ML IV BAG IV PRN (13:45)
--- NOTE | 2019-11-18 16:00 | NUR ---
DR. MACK AWARE OF MRA HEAD, CAROTID DOPP ORDERS ENTERED.
[2019-11-18 17:10] VITALS: BP 138/79
[2019-11-18 20:29] VITALS: BP 124/82
[2019-11-18] MEDS: ATORVASTATIN CALCIUM 20 MG TABLET PO SCH (21:16)
[2019-11-19 00:14] VITALS: BP 131/79
[2019-11-19 04:58] VITALS: BP 145/66
[2019-11-19] MEDS: INSULIN R PO SS1 SQ SCH ×4 (05:43→21:00)
[2019-11-19 07:30] VITALS: BP 119/76
[2019-11-19] MEDS: CALCIUM ACETATE 667 MG CAPSULE PO SCH ×3 (08:32→16:54)
[2019-11-19] MEDS: ASPIRIN 81MG TAB.CHEW PO SCH (08:32)
[2019-11-19] MEDS: AMLODIPINE BESYLATE 5 MG TAB PO SCH (08:32)
[2019-11-19] MEDS: CLOPIDOGREL BISULFATE 75 MG TAB PO SCH (08:33)
[2019-11-19] MEDS: FAMOTIDINE/PF 20 MG/2 ML VIAL IV SCH ×2 (08:33→21:13)
[2019-11-19] MEDS: LISINOPRIL 20 MG TABLET PO SCH (08:33)
[2019-11-19] MEDS: FOLIC ACID/VITAMIN B COMP W-C 1 CAP TAB PO SCH (09:18)
--- NOTE | 2019-11-19 09:19 | NUR ---
aaox4, weakness to right wrist, and right fingers noted. able to raise right upper extremity above his head. BLE WEAKNESS NOTED, SAYS IT HAS ALWAYS BEEN THERE, WORSE AFTER HEMODIALYSIS. SEEN BY DR. MACK. NEW ORDERS ANTICIPATED. STABLE.
[2019-11-19 11:00] VITALS: BP 131/73
--- NOTE | 2019-11-19 14:41 | NUR ---
ATTEMPTED MAKING REFERRAL TO DR. AC ORDERED BY Bell MACK AND DEMETRIO. PER DR. AC'S OFFICE: REFERRAL HAS TO COME FROM THE PCP'S OFFICE WITH IMAGING AND PROGRESS NOTES AFTER THE PCP HAS REVIEWED THEM. DR. ATKINSON UPDATED. DR. ATKINSON'S OFFICE CONTACTED AND NOTIFIED OF NEED TO INITIATE APPOINTMENT WITH DR. AC. UNIT SEC. SPOKE WITH ZELDA. OUT PATIENT F/U REFERRAL TO DR. ROSAURA COBOS MADE FOR 12/29/19 @4781
[2019-11-19 16:00] VITALS: BP 122/58
[2019-11-19 20:31] VITALS: BP 118/47
[2019-11-19] MEDS: ATORVASTATIN CALCIUM 20 MG TABLET PO SCH (21:13)
[2019-11-20 00:35] VITALS: BP 155/94
[2019-11-20 04:27] VITALS: BP 143/82
[2019-11-20 05:05] LABS: BASOPHILS % (AUTO) 1.3 % (0.0-5.0); EOSINOPHILS % (AUTO) 6.4 % (0.0-8.0); HEMATOCRIT 32.8 % (42-54); LYMPHOCYTES % (AUTO) 27.9 % (21.0-51.0); MEAN CORPUSCULAR HEMOGLOBIN 30.4 pg (27.0-33.0); MEAN CORPUSCULAR HGB CONC 34.1 g/dL (32.0-36.0); MEAN CORPUSCULAR VOLUME 88.9 fL (79-99); MONOCYTES % (AUTO) 10.8 % (3.0-13.0); NEUTROPHILS % (AUTO) 53.1 % (40.0-77.0); PLATELET COUNT (AUTO) 229 K/uL (130-400); RED BLOOD CELL COUNT(AUTO) 3.69 MIL/uL (4.50-6.20); RED CELL DISTRIBUTION WIDTH 12.4 % (11.0-15.5); WHITE BLOOD COUNT (AUTO) 12.7 K/uL (4.8-10.8)
[2019-11-20 05:24] LABS: ALBUMIN 3.4 g/dL (3.5-5.0); BILIRUBIN,TOTAL 0.5 mg/dL (0.2-1.0); POTASSIUM 5.2 mmol/L (3.5-5.1); TOTAL PROTEIN, SERUM 7.4 g/dL (6.0-8.3)
[2019-11-20 05:43] LABS: CREATININE 13.5 mg/dL (0.5-1.5)
[2019-11-20 07:30] VITALS: BP 154/91
[2019-11-20] MEDS: INSULIN R PO SS1 SQ SCH ×3 (07:30→16:30)
[2019-11-20] MEDS: CALCIUM ACETATE 667 MG CAPSULE PO SCH ×3 (08:00→17:00)
[2019-11-20 11:00] VITALS: BP 124/75
[2019-11-20] MEDS ORDERED: CLOP75TA14 PO (13:26)
[2019-11-20] MEDS: CLOPIDOGREL BISULFATE 75 MG TAB PO SCH (13:28)
[2019-11-20] MEDS: FOLIC ACID/VITAMIN B COMP W-C 1 CAP TAB PO SCH (13:28)
[2019-11-20] MEDS: AMLODIPINE BESYLATE 5 MG TAB PO SCH (13:28)
[2019-11-20] MEDS: LISINOPRIL 20 MG TABLET PO SCH (13:29)
[2019-11-20] MEDS: ASPIRIN 81MG TAB.CHEW PO SCH (13:30)
[2019-11-20] MEDS: FAMOTIDINE/PF 20 MG/2 ML VIAL IV SCH (13:30)
[2019-11-20 16:00] VITALS: BP 155/85
--- NOTE | 2019-11-20 17:45 | NUR ---
PT D/C PAPER WORK GIVEN RE; NEW MEDS, HOME MEDS, S/S TO WATCH FOR AND WHEN TO CALL MD OR 911. PLEASE FOLLOWUP WITH DR ROSAURA COBOS [phone] ON 12/29/19 @ 08:50AM. FOR PHYSICAL THERAPY PLEASE FOLLOWUP WITH DR ATKINSON [phone] ON 12/04/19 @ 3:00PM. FOR DIALYSIS AND REFERRALS FOR DR. MACK, DR ROSAURA LOTT, DR. SHERMAN. PLEASE FOLLOW UP WITH DR SHERMAN [phone]. 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 PLEASE FOLLOW UP WITH DR. MACK IN 6 WEEKS HE IS YOUR NEUROLOGIST. BUT YOU WILL NEED A REFERRAL FROM YOUR DOCTOR. CALL TO SET UP AN APPOINTMENT AT PHONE . PLEASE BRING ALL MEDS, DISCHARGE INSTRUCTIONS AND INSURANCE CARDS TO APPOINTMENTS. IF YOU HAVE WEAKNESS ON ONE SIDE OF YOUR BODY, FACIAL DROOP, CONFUSION, TROUBLE SPEAKING CALL 911. AAOX3, DENIES ANY QUESTIONS AWARE THAT HIS IV WILL BE REMOVED WHEN FAMILY ARRIVES TO TAKE HIM HOME.
--- NOTE | 2019-11-20 17:47 | NUR ---
PT WAITING FOR RIDE HOME
--- NOTE | 2019-11-20 18:30 | NUR ---
PT D/C DENIES ANY PAIN CHEST OR HEAD PAIN ACCOMPANIED BY SISTER.
== END 2019-11-20 19:00 | disposition home or self-care (01) | DRG 123 ==
LOC: EDH 22:53 → EDHIP 11-16 01:00 → 3DH 11-16 21:28
PROVIDERS: ADMIT Internal Medicine Nephrology; ATTEND Internal Medicine Nephrology
PROC: 5A1D70Z Performance of Urinary Filtration, Intermittent, Less than 6 Hours Per Day (ICD-10-PCS; 2019-11-16)
PROC: 5A1D70Z Performance of Urinary Filtration, Intermittent, Less than 6 Hours Per Day (ICD-10-PCS; 2019-11-18)
PROC: 5A1D70Z Performance of Urinary Filtration, Intermittent, Less than 6 Hours Per Day (ICD-10-PCS; principal; 2019-11-20)
DX: H49.22 Sixth [abducent] nerve palsy, left eye (principal); N18.6 End stage renal disease; I12.0 Hypertensive chronic kidney disease with stage 5 chronic kidney disease or end stage renal disease; E11.41 Type 2 diabetes mellitus with diabetic mononeuropathy; E11.22 Type 2 diabetes mellitus with diabetic chronic kidney disease; I65.21 Occlusion and stenosis of right carotid artery; D64.9 Anemia, unspecified; E11.319 Type 2 diabetes mellitus with unspecified diabetic retinopathy without macular edema; E11.51 Type 2 diabetes mellitus with diabetic peripheral angiopathy without gangrene; E66.9 Obesity, unspecified; E78.5 Hyperlipidemia, unspecified; M21.331 Wrist drop, right wrist; Z68.31 Body mass index [BMI] 31.0-31.9, adult; Z99.2 Dependence on renal dialysis
CPT/HCPCS: 36415; 70450; 70544; 70551; 71045; 72125; 80048; 80053; 80061; 80074; 81001; 82550; 82948; 83036; 84100; 84484; 85025; 85027; 85610; 85730; 86706; 90935; 92610; 93005; 93880; G0378; J2060; J2405; J3490

== ENCOUNTER 2022-03-25 20:53 | Emergency (ER) | payer MEDICARE ==
[~2022-03-25] VITALS: Ht 172.7 cm; Wt 102.1 kg
[~2022-03-25 20:53] MED LIST changes: +AMLO-258 PO; -AMLO10TA7 PO; +CALC667C10 PO; +CLOP75TA14 PO; +FOLI0.8T22 PO; -LISI-617 PO; +LISI20TA24 PO; +SUCR500T PO
[2022-03-25 21:55] VITALS: BP 170/83
== END 2022-03-25 23:02 | disposition home or self-care (01) ==
LOC: EDH 20:53
DX: M16.12 Unilateral primary osteoarthritis, left hip (principal); I12.0 Hypertensive chronic kidney disease with stage 5 chronic kidney disease or end stage renal disease; E11.22 Type 2 diabetes mellitus with diabetic chronic kidney disease; N18.5 Chronic kidney disease, stage 5; Z86.73 Personal history of transient ischemic attack (TIA), and cerebral infarction without residual deficits; Z79.899 Other long term (current) drug therapy; Z79.82 Long term (current) use of aspirin
CPT/HCPCS: 73552

== ENCOUNTER 2022-04-06 16:55 | Emergency (ER) | payer MEDICARE ==
[~2022-04-06] VITALS: Ht 172.7 cm; Wt 102.1 kg
[2022-04-06] MEDS ORDERED: KETOROLAC 30MG VIAL (30MG/ML) IM STA (17:42)
[2022-04-06] MEDS ORDERED: ORPHENADRINE CITRATE 30 MG/ML ML IM ONE (18:00)
[2022-04-06] MEDS ORDERED: DICL20GE TP (18:35)
[2022-04-06 18:36] VITALS: BP 106/60
== END 2022-04-06 18:44 | disposition home or self-care (01) ==
LOC: EDH 16:55
DX: M16.12 Unilateral primary osteoarthritis, left hip (principal); E11.9 Type 2 diabetes mellitus without complications; I25.10 Atherosclerotic heart disease of native coronary artery without angina pectoris; Z79.1 Long term (current) use of non-steroidal anti-inflammatories (NSAID); Z79.82 Long term (current) use of aspirin; Z79.899 Other long term (current) drug therapy; Z86.73 Personal history of transient ischemic attack (TIA), and cerebral infarction without residual deficits
CPT/HCPCS: 99284; 96372 ×2; J1885; J2360